=== PATIENT | female | born 1950 | race Caucasian/White ===

== ENCOUNTER 2022-02-19 08:57 | Outpatient (CLI) | payer MEDICARE, BC, SELFPAY ==
--- NOTE | 2022-02-19 09:15 | MR_ITS ---
[facility] [address] [facility] [address] Phone:?[phone] Fax:?[phone] Referring Physician Information: Kevin Arroyo M.D. [address] [facility] [address] Phone:?[phone] Fax:?[phone] Patient:Adele Roth D.O.B:?1950 Sex:?Female Phone:?[phone] [facility] MRN:?[id number] Exam Date:?02/19/2022 ? EXAM: MRI of the RIGHT SHOULDER, without contrast CLINICAL HISTORY: Right shoulder pain. History of fall injury approximately 8 weeks ago. COMPARISONS: None available. TECHNICAL: MRI sequences of the right shoulder: Axials: PD, T2 Coronals: PD, STIR, T2 Sagittals: PD, T2 SEDATION: None CONTRAST: None FINDINGS: Bones: There is nondisplaced fracture of the greater tuberosity at the insertion of the supraspinatus tendon. Coracoacromial arch: Acromion: No os acromiale. Type II acromion. Acromiohumeral space: The bony distance is unremarkable. Coracohumeral space: The bony distance is unremarkable. Acromioclavicular joint: Mild degenerative changes. Coracoclavicular ligament: The coracoclavicular ligament is intact. Rotator cuff muscles/tendons: Supraspinatus: Approximately 1.0 x 1.0 cm region of ill-defined moderate to high-grade partial-thickness intrasubstance tearing within the supraspinatus tendon insertion superimposed upon mild supraspinatus tendinopathy best seen on coronal series 4 images 11 and 12 and sagittal series 8 image 8. No muscular atrophy. Infraspinatus: Mild infraspinatus tendinopathy. No muscular atrophy. Teres minor: The teres minor tendon and muscle are intact. Subscapularis: The subscapularis tendon and muscle are intact. Labrum: Not well evaluated by this nonarthrogram study. Proximal biceps tendon, long head and short heads: The long and short heads of the proximal biceps tendon are intact. Glenohumeral joint: Physiologic amount of joint fluid. Extensive near full-thickness and full-thickness chondral loss over most of the glenoid with associated degenerative subchondral cystic changes best seen on coronal series 4 images 11 through 18. No convincing evidence of capsular edema or thickening although evaluation is suboptimal because of lack of joint distention. Bursae: Subacromial/subdeltoid: Mild bursitis. Subcoracoid: No convincing subcoracoid bursal thickening/bursitis. IMPRESSION: 1. Nondisplaced fracture of the greater tuberosity at the supraspinatus tendon insertion. 2. Approximately 1.0 x 1.0 cm region of ill-defined moderate to high-grade partial-thickness intrasubstance tearing within the supraspinatus tendon insertion superimposed upon mild supraspinatus tendinopathy. 3. Extensive near full-thickness and full-thickness chondral loss over most of the glenoid with associated degenerative subchondral cystic changes. 4. Mild infraspinatus tendinopathy. 5. No rotator cuff muscular atrophy. 6. Mild subacromial/subdeltoid bursitis. 7. Intact biceps tendon. RCB Electronically signed on 02/19/2022 11:28:00 AM by Lenny Munoz M.D.
== END 2022-02-19 08:58 | disposition home or self-care (01) ==
LOC: MRI 08:58
PROVIDERS: PCP Family Medicine; Visit Provider Family Medicine
DX: M25.511 Pain in right shoulder (principal); S42.91XA Fracture of right shoulder girdle, part unspecified, initial encounter for closed fracture; M75.51 Bursitis of right shoulder
CPT/HCPCS: 73221

== ENCOUNTER 2022-03-04 11:03 | Outpatient (RCR) | payer MEDICARE, BC, SELFPAY ==
--- NOTE | 2022-03-04 12:33 | PT.OPEX ---
PT [place] Outpatient Eval PT [facility] Outpatient Eval Start: 03/04/22 07:00 Freq: Status: Active Protocol: Document 03/04/22 12:27 MICHAEL (Rec: 03/04/22 12:32 MICHAEL [id number]) E-signed By Edith Quick, PT Physical Therapy Outpatient Evaluation Insurance Information Recert Due Date 05/27/22 Insurance Name Medicare B Medical Diagnosis Rt shoulder Rotator Cuff Tear with Humeral Greater Tuberosity Fracture from a fall 12/27/2021 Treating Diagnosis Reduced AROM and strength Impaired Rt UE use Pain Referring MD Dr Hilario Figueroa Subjective Subjective Earline reports falling when getting up at night to use the bathroom. That happened at 3: 30 am. I got up to go to work, but my arm was throbbing so bad I had to go to the clinic. Referral from Dr rodriguez to work for 3 weeks (PT at [facility]). I went in to see my regular Dr. Had X-Ray, which showed nothing. Then had an MRI and saw the evulsion fracture and RC tear. She is not a surgical candidate. She is now 9 weeks s/p injury and would like to just learn some ex. Pain remains constant 4-710 depending on what I am doing. I feel pretty good when I get up in the morning, but as the day progresses it gets weaker . I still use ice and take ibuprofen (2 in the morning). Pain with sleeping, also with lifting too much. I do not have any N/T or KO from this. Some neuropathy from s/p mervin breast CA (Rt s/p 15 years, Lt 4 years). 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 PROM: FF 0-161 deg, ABD 0-158, ER 0-85, Strength In neutral 4-/5 FF/ABD/ER. Palpation Very hypertonic at pect major/ minor, biceps, deltoid cap. Myofascial tension full shoulder Posture slight protraction Assessment Assessment/Impression 72 yo with DX of Rt shoulder RC tear with Fractured Rt greater tuberosity of humerus. She did not have a surgical repair, but has had self limitations due to pain and weakness. Work restriction of no arm use overhead and no lifting more than 15#. She has good CX and LT AROM, Rt is impaired: FF 0-140, ABD 0-132, ER 0-45 and IR 0-55. All improved with PROM and post STM/MFR (see above PROM). She is very hypertonic at pect major/minor, biceps, deltoid cap and myofascial tension is great. She has a set of pulleys at home from husbands previous injury. MMT 4-/5 testing in neutral FF/ABD/ER. ADD and EXT 5/5 Primary Functional Limitations Functional reach behind head to occiput with CX ROT to assist. IR reach behind back to SIJ. Plan of Care Rehabilitation Potential Good Physical Therapy Goals In 6 visits, Earline will be able to: 1. AROM is WFL pain free 2. Don/doff overhead shirt without compensatory movements 3. Lift/carry up to 25# 30 feet without difficulties 4. Repetative use of Rt arm waist to overhead X 5 min with light weight (wash mirror, reach into upper cabinet, etc) 5. IND in entire HEP to regain PLOF painfree Coordination/Communication With Referral Source Treatment Plan/Direct Interventions Ice/Cold/Vasopneumatic,Joint Mobilization,Manual Therapy, Self-Care/Home Management, Therapeutic Activities, Therapeutic Exercises Frequency/Duration 1X/Wk for 12 weeks Patient Will Be Discharged From Therapy Completion of LTG(s),Skills Plateau,Independent w/HEP, Independently Progressing Evaluation Billing Untimed Code Treatment Minutes 31 Complexity Moderate Certification Information Initial Certification Date 03/04/22 Ending Certification Date 05/27/22 Provider Signature Shows Agreement With POC & Medical Necessity Physician Comment/Change Comment or Changes Physician NPI Number #
== END 2022-04-29 14:16 | disposition home or self-care (01) ==
PROVIDERS: PCP Family Medicine; Visit Provider Orthopaedic Surgery Sports Medicine
DX: S42.309D Unspecified fracture of shaft of humerus, unspecified arm, subsequent encounter for fracture with routine healing (principal); Z51.89 Encounter for other specified aftercare
CPT/HCPCS: 97110; 97140; 97162

== ENCOUNTER 2022-06-09 13:45 | Outpatient (CLI) | payer MEDICARE, BC, SELFPAY ==
[2022-06-09 22:49] LABS: Chloride* 97 mmol/L (96-114); Potassium* 3.8 mmol/L (3.6-5.1); Sodium* 136 mmol/L (135-149)
[2022-06-09 22:51] LABS: Cholesterol* 237 mg/dL (90-199)
[2022-06-09 22:52] LABS: Alanine Aminotransferase* 23 U/L (4-35); Blood Urea Nitrogen* 15 mg/dL (7-30); Calcium* 9.5 mg/dL (8.4-10.6); Carbon Dioxide* 34 mmol/L (20-32); Creatinine* 0.7 mg/dL (0.5-1.5); Estimated Glomerular Filt Rate 92 ml/min; Glucose* 88 mg/dL (60-115); Triglycerides* 54 mg/dL (40-149)
[2022-06-09 22:53] LABS: HDL Cholesterol* 102 mg/dL (>=50); LDL Cholesterol Calculated 124 mg/dL (<100)
== END 2022-06-09 13:46 | disposition home or self-care (01) ==
PROVIDERS: PCP Family Medicine; Visit Provider Family Medicine
DX: I10 Essential (primary) hypertension (principal); E78.5 Hyperlipidemia, unspecified
CPT/HCPCS: 80048; 80061; 84460

== ENCOUNTER 2023-03-04 09:54 | Outpatient (CLI) | payer BC, SELFPAY | END 2023-03-04 09:55 | disposition home or self-care (01) | PROVIDERS: PCP Family Medicine; Visit Provider Family Medicine | DX: R42 Dizziness and giddiness (principal); E78.5 Hyperlipidemia, unspecified; I10 Essential (primary) hypertension | CPT/HCPCS: 80048; 80061; 84460; 85025 ==

== ENCOUNTER 2023-06-02 08:45 | Emergency (ER) | payer MEDICARE, SELFPAY ==
[2023-06-02] VITALS (38 sets, daily range): BP systolic 76–141; BP diastolic 47–107; PULSE 71–118; RESP 20; TEMP 36.3–36.5; O2SAT 94–100; BMI 28.0
--- NOTE | 2023-06-02 09:33 | ED.GENADULT ---
HPI - General Adult General Time Seen by Provider: 09:16 Date Seen: 06/02/23 Chief complaint: Dizziness/Vertigo Stated complaint: dizzy,shortness of breath Time Seen by Provider: 06/02/23 08:51 Source: patient Mode of arrival: ambulatory Limitations: no limitations History of Present Illness HPI narrative: Patient presents with sudden lightheadedness beginning this morning around 8:00 a.m. while she was working at [employer]. She states at that time she began to feel ?off? and felt palpitations. The patient attempted to drink some water and ate some cookies and also took 2 ibuprofen and 1 Tylenol at the onset of her symptoms with little to no relief. Patient states she can feel her heart beating in her chest and she is feeling warm. On her ride over to the ED patient states she began to feel short of breath. As of yesterday, patient was feeling fine. She denies any headaches, weakness, leg swelling, abdominal pain, urinary changes, bowel changes, vision changes, cough, or any other complaints at this time. She is a former smoker. Patient's last alcoholic drink was approximately 3 days ago. Patient takes a baby aspirin every other day. She has taken her blood pressure medications this morning. Related Data Home Medications Medication Instructions Recorded Confirmed anastrozole 1 mg tablet 1 mg PO QDAY 12/26/21 06/02/23 aspirin 81 mg tablet,delayed 81 mg PO QDAY 12/26/21 03/04/23 release Previous Rx's Medication Instructions Recorded lisinopril 10 1 tab PO QDAY #90 tabs 03/04/23 mg-hydrochlorothiazide 12.5 mg tablet meclizine 25 mg tablet 25 mg PO TID PRN dizziness #30 tabs 03/04/23 ondansetron 8 mg disintegrating 8 mg PO TID PRN nausea and 03/04/23 tablet vomiting #20 tabs rosuvastatin 10 mg tablet (Crestor) 10 mg PO QDAY #90 tabs 03/04/23 Allergies Allergy/AdvReac Type Severity Reaction Status Date / Time No Known Drug Allergies Allergy Verified 06/02/23 10:40 Review of Systems Status of ROS: Reports: 10 or more systems reviewed and unremarkable except as noted in History and below Const: Denies: fever, chills, change in weight, fatigue, malaise or night sweats Eyes: Denies: change in vision, blurry vision, blind spots or light sensitivity ENMT: Denies: throat pain, neck pain, throat swelling, difficulty swallowing, mouth pain, dry mouth, ear pain or vertigo Cardio: Reports: palpitations, lightheadedness, shortness of breath with exertion and shortness of breath when lying down; Denies: chest pain, edema, swelling of feet/ankles or leg pain with exertion Resp: Reports: shortness of breath GI: Denies: abdominal pain, nausea, vomiting, heartburn, diarrhea, constipation, bloating or difficulty swallowing : Denies: painful urination, urinary frequency, urinary urgency, urinary incontinence, blood in urine, difficulty voiding or decreased urine ouput Musculo: Denies: back pain, neck pain, extremity pain, extremity swelling, joint pain, limited range of motion, joint swelling, muscle cramps or muscle weakness Integ/Breast: Denies: rash Neuro: Denies: headache, numbness in extremities, weakness in extremities, lack of coordination, dizziness, vertigo, confusion, behavioral changes, slurred speech, difficulty communicating thoughts or involuntary movements Psych: Reports: anxiety Endo: Reports: flushing; Denies: excessive urination, excessive thirst or fatigue Vladimir/Lymph: Denies: enlarged lymph nodes Allergy/Immuno: Denies: throat swelling PFSH [facility] Medical History (Updated 06/02/23 @ 11:23 by Don Nathan MD) Osteoarthritis of right shoulder ?M19.011 - Primary osteoarthritis, right shoulder (ICD-10) Fracture of greater tuberosity of right humerus ?S42.251A - Displaced fracture of greater tuberosity of right humerus, initial encounter for closed fracture (ICD-10) Rotator cuff tear, right (12/2021) ?M75.101 - Unspecified rotator cuff tear or rupture of right shoulder, not specified as traumatic (ICD-10) Onychomycosis ?B35.1 - Tinea unguium (ICD-10) Malignant neoplasm of right breast (2002) ?C50.911 - Malignant neoplasm of unspecified site of right female breast (ICD-10) Infiltrating ductal carcinoma of left breast (09/09/17) ?C50.912 - Malignant neoplasm of unspecified site of left female breast (ICD-10) Hypertension ?I10 - Essential (primary) hypertension (ICD-10) Hyperlipidemia ?E78.5 - Hyperlipidemia, unspecified (ICD-10) History of traumatic brain injury (2016) ?Z87.820 - Personal history of traumatic brain injury (ICD-10) History of colonic polyps (08/18/18) ?Z86.010 - Personal history of colonic polyps (ICD-10) Chemotherapy-induced neuropathy ?G62.0 - Drug-induced polyneuropathy (ICD-10) ?T45.1X5A - Adverse effect of antineoplastic and immunosuppressive drugs, initial encounter (ICD-10) Insomnia ?G47.00 - Insomnia, unspecified (ICD-10) Surgical History (Updated 01/31/22 @ 12:19 by Alex Barahona) Status post excision of Boateng's neuroma (2004) ?Z98.890 - Other specified postprocedural states (ICD-10) ?Z86.69 - Personal history of other diseases of the nervous system and sense organs (ICD-10) History of tubal ligation ?Z98.51 - Tubal ligation status (ICD-10) History of colonoscopy (08/18/18) ?Z98.890 - Other specified postprocedural states (ICD-10) History of breast reconstruction ?Z98.890 - Other specified postprocedural states (ICD-10) History of bilateral mastectomy (2002) ?Z90.13 - Acquired absence of bilateral breasts and nipples (ICD-10) Family History Mother Stroke, Onset Age: 78 Social History (Reviewed 02/28/22 @ 10:03 by Tracey Medina ~ [facility], [facility]) Narrative: -Daniel, [place], non-smoker, social EtOH Smoking Status: Former smoker Exam Narrative: Exam Narrative: General: Well-nourished, healthy-appearing, but diaphoretic and mildly anxious on exam. HENMT: Normal cephalic, atraumatic. Hearing grossly intact bilaterally. Moist mucous membranes. Oropharynx normal. Neck: Full ROM. Supple, no lymphadenopathy. Eye: PERRL. EOMs intact bilaterally. Conjunctiva normal. Chest/Cardio: Inspection normal. No tenderness to palpation of chest wall. Tachycardic with an irregularly irregular rhythm. No clicks, rubs, gallops, or murmurs. 2+ peripheral pulses bilaterally. No JVD. Resp: Inspection normal. No increased effort, no use of accessory muscles. Lungs clear to auscultation bilaterally with no wheezing, rhonchi, crackles. Percussion normal. GI: Inspection normal. Normoactive bowel sounds. Soft, nondistended, nontender with no rebound tenderness or guarding. No hepatosplenomegaly. No CVA tenderness. Extremities: Normal inspection. Full ROM. No pedal edema. No calf tenderness. Capillary refill normal. Neuro: Alert and oriented x3. No focal motor or sensory deficits noted. Cranial nerves II- XII intact. Psych: Cooperative. Speech normal. Thought process appropriate. Skin: No rashes or lesions. Warm and diaphoretic. Const: Vital Signs, click to edit/add: Vital Signs - 24 hr 06/02/23 08:56 06/02/23 09:18 06/02/23 09:31 Temperature 97.7 F Pulse Rate 118 H 92 Pulse Rate [Bilate ral] 104 H Respiratory Rate 20 Blood Pressure 108/97 H Blood Pressure [Le ft Upper Arm] 141/94 H Pulse Oximetry 98 100 [facility] 06/02/23 09:32 06/02/23 09:37 06/02/23 09:38 Temperature Pulse Rate 118 H 90 106 H Pulse Rate [Bilate ral] Respiratory Rate Blood Pressure 119/82 119/107 H Blood Pressure [Le ft Upper Arm] Pulse Oximetry 100 97 [facility] 06/02/23 09:40 06/02/23 09:41 06/02/23 09:43 Temperature Pulse Rate 109 H 92 91 Pulse Rate [Bilate ral] Respiratory Rate Blood Pressure 90/48 L 90/53 L 76/47 L Blood Pressure [Le ft Upper Arm] Pulse Oximetry 97 95 98 Oxygen Delivery Me thod 06/02/23 09:44 06/02/23 09:45 06/02/23 09:46 Temperature Pulse Rate 101 H 95 80 Pulse Rate [Bilate ral] Respiratory Rate Blood Pressure 93/67 92/66 Blood Pressure [Le ft Upper Arm] Pulse Oximetry 98 96 94 Oxygen Delivery Me thod 06/02/23 09:47 06/02/23 09:48 06/02/23 09:50 Temperature Pulse Rate 80 84 95 Pulse Rate [Bilate ral] Respiratory Rate Blood Pressure 88/70 L 91/47 L 79/63 L Blood Pressure [Le ft Upper Arm] Pulse Oximetry 98 98 96 Oxygen Delivery Me thod 06/02/23 09:52 06/02/23 09:53 06/02/23 09:56 Temperature Pulse Rate 85 82 88 Pulse Rate [Bilate ral] Respiratory Rate Blood Pressure 92/76 99/52 L Blood Pressure [Le ft Upper Arm] Pulse Oximetry 97 97 98 Oxygen Delivery Me od 06/02/23 10:00 06/02/23 10:01 06/02/23 10:06 Temperature Pulse Rate 80 84 79 Pulse Rate [Bilate ral] Respiratory Rate Blood Pressure 96/63 92/64 Blood Pressure [Le ft Upper Arm] Pulse Oximetry 99 99 98 Oxygen Delivery Me od 06/02/23 10:11 06/02/23 10:12 06/02/23 10:15 Temperature Pulse Rate 79 75 74 Pulse Rate [Bilate ral] Respiratory Rate Blood Pressure 110/79 Blood Pressure [Le ft Upper Arm] Pulse Oximetry 96 97 99 Oxygen Delivery Me od 06/02/23 10:16 06/02/23 10:22 06/02/23 10:30 Temperature Pulse Rate 75 77 77 Pulse Rate [Bilate ral] Respiratory Rate Blood Pressure 96/61 96/59 L Blood Pressure [Le ft Upper Arm] Pulse Oximetry 98 99 99 Oxygen Delivery Me od 06/02/23 10:31 06/02/23 10:31 06/02/23 10:32 Temperature 97.4 F L Pulse Rate 78 76 Pulse Rate [Bilate ral] Respiratory Rate Blood Pressure 103/55 L Blood Pressure [Le ft Upper Arm] Pulse Oximetry 98 96 Oxygen Delivery Me od 06/02/23 10:45 06/02/23 10:46 06/02/23 10:52 Temperature Pulse Rate 73 75 75 Pulse Rate [Bilate ral] Respiratory Rate Blood Pressure 89/62 L 103/62 Blood Pressure [Le ft Upper Arm] Pulse Oximetry 98 99 99 Oxygen Delivery Me od 06/02/23 10:53 06/02/23 11:00 06/02/23 11:02 Temperature Pulse Rate 76 71 75 Pulse Rate [Bilate ral] Respiratory Rate Blood Pressure 102/52 L Blood Pressure [Le ft Upper Arm] Pulse Oximetry 99 98 99 Oxygen Delivery Me od 06/02/23 11:03 06/02/23 11:15 06/02/23 11:17 Temperature Pulse Rate 74 77 77 Pulse Rate [Bilate ral] Respiratory Rate Blood Pressure 109/72 Blood Pressure [Le ft Upper Arm] Pulse Oximetry 99 97 98 Oxygen Delivery Me thod Eye: Direct Ophthalmoscopy: no photophobia Course Vital Signs Vital signs: Initial Vital Signs Temperature 97.7 F 06/02/23 08:56 Temperature Source Oral 06/02/23 08:56 Pulse Rate 104 H 06/02/23 08:56 Pulse Rhythm Regular 06/02/23 08:56 Pulse Strength 3+ Normal 06/02/23 08:56 Respiratory Rate 20 06/02/23 08:56 Blood Pressure 141/94 H 06/02/23 08:56 Blood Pressure Mean 109 H 06/02/23 08:56 Pulse Oximetry 98 06/02/23 08:56 Oxygen Delivery Method Room Air 06/02/23 08:56 Vital Signs Temperature 97.7 F 06/02/23 08:56 Pulse Rate 104 H 06/02/23 08:56 Respiratory Rate 20 06/02/23 08:56 Blood Pressure 141/94 H 06/02/23 08:56 Pulse Oximetry 98 06/02/23 08:56 Oxygen Delivery Method Room Air 06/02/23 08:56 Temperature 97.4 F L 06/02/23 10:31 Pulse Rate 77 06/02/23 11:17 Respiratory Rate 20 06/02/23 08:56 Blood Pressure 109/72 06/02/23 11:17 Pulse Oximetry 98 06/02/23 11:17 Oxygen Delivery Method Room Air 06/02/23 08:56 Medications Administered Medications: Discontinued Medications Generic Name Dose Route Start Last Admin Trade Name Balq PRN Reason Stop Dose Admin Apixaban 10 mg 06/02/23 09:57 06/02/23 10:22 Apixaban 5 Mg Tablet PO 06/02/23 09:58 10 mg ONCE ONE Administration Diltiazem HCl 20 mg 06/02/23 09:17 06/02/23 10:01 Diltiazem 5 Mg/Ml Inj IVP 06/02/23 09:18 10 mg ONCE ONE Administration Sodium Chloride 1,000 mls @ 1,000 mls/hr 06/02/23 10:00 06/02/23 10:53 0.9 % Sodium Chloride 1000 Ml IV 06/02/23 10:59 Infused .Q1H AMIE Infusion Medical Decision Making MDM Narrative Medical decision making narrative: Patient is a pleasant 73-year-old female with a past pertinent medical history of hypertension who presents today with sudden lightheadedness, shortness of breath, and palpitations beginning around 0800 a.m. this morning while working at [employer]. Prior to today, patient has been feeling fine. Patient denies any current chest pain. She tried drinking water, eating some cookies, and taking two ibuprofen and one Tylenol tablet with little to no relief this morning. She did take her blood pressure medication this morning. Patient does take a baby aspirin every other day. She denies any headaches, vision changes, or fatigue/weakness. On exam, patient is alert, diaphoretic, and talkative. She is hypertensive with a BP of 141/94 and tachycardic at approximately 140 bpm with an irregularly irregular rhythm. 2+ peripheral pulses. Lungs were clear to auscultation. No neural deficits. Otherwise unremarkable physical exam. Workup will include EKG, troponin CBC, BMP, TSH, COVID/flu. Initial EKG showed atrial fibrillation with rapid ventricular response at 142 bpm. Point of care troponin is negative at 0.01. IV was placed and patient was given 1 L normal saline fluids and 10 mg IV diltiazem which lowered her rate to 85 bpm. Repeat EKG obtained which showed normal sinus rhythm with 1st degree AV block is and her rate has now lowered 85 beats per minute. Started patient on 10 mg Eliquis due to the possibility of cardioversion and subsequent blood clot risk. Patient is maintaining normal sinus rhythm, so cardioversion is not appropriate or necessary at this time. CBC is reassuring and within normal limits. Metabolic panel is unremarkable, besides a nonfasting glucose of 119; however, this is not worrisome. TSH is WNL. Viral panel is negative. On reexamination, patient is feeling much better and her diaphoresis, shortness of breath, and palpitations have resolved. She is maintaining normal sinus rhythm and her rate is well controlled at approximately 80 bpm. We discussed how her blood pressure is lower at 102/52 and she may feel lightheaded when she tries to stand. Will do an ambulatory test before discharge. All other vital signs are stable. We discussed follow-up with her primary care provider to assess appropriate blood pressure medications and even consider rate controlling BP meds. Advised patient start taking her 81 mg baby aspirin daily instead of every other day. Return precautions advised. Patient and family understand and are in agreement with the plan. Lab Data Labs: Lab Results 06/02/23 Range/Units 09:25 WBC 5.01 (4.50-11.00) K/uL RBC 4.50 (4.00-5.20) m/uL Hgb 13.1 (12.0-16.0) gm/dL Hct 40.2 (33.0-51.0) % MCV 89 (80-100) fL MCH 29 (26-34) pg MCHC 33 (32-36) gm/dL RDW Coeff of Obdulia 13.2 (11.5-15.5) % Plt Count 259 (140-440) K/uL Neut % (Auto) 68.0 (42.0-72.0) % Lymph % (Auto) 24.6 (20-44) % [place] % (Auto) 5.6 (0.0-11.0) % Eos % (Auto) 1.0 (0.0-7.0) % Baso % (Auto) 0.8 (0.0-3.0) % Neut # (Auto) 3.41 (1.7-7.0) K/uL Lymph # (Auto) 1.23 (0.90-2.90) K/uL [place] # (Auto) 0.30 (0.00-0.90) K/UL Eos # (Auto) 0.05 (0.00-0.50) K/uL Baso # (Auto) 0.04 (0.00-0.30) K/uL Abs Immat Gran (auto) 0.00 (0.00-0.30) K/uL Imm/Tot Granulo (auto) 0.0 % Sodium 135 (135-149) mmol/L Potassium 3.8 (3.6-5.1) mmol/L Chloride 100 (96-114) mmol/L Carbon Dioxide 26 (20-32) mmol/L Anion Gap 9 (7-15) mEq/L BUN 22 (7-30) mg/dL Creatinine 0.9 (0.5-1.5) mg/dL Estimated Creat Clear 54.18 Estimated GFR 68 ml/min Glucose 119 H (60-115) mg/dL Calcium 9.4 (8.4-10.6) mg/dL TSH 1.430 (0.270-4.20) uIU/mL SARS-CoV-2 (PCR) Negative SARS-CoV-2 (Negative) Influenza Type A (PCR) Negative PCR FLU A (Negative) Influenza Type B (PCR) Negative PCR FLU B (Negative) RSV (PCR) Negative PCR RSV (Negative) POC Troponin I 0.01 (0.01-0.04) ng/ml ECG Data Attestation: I personally reviewed and interpreted this ECG as follows: Interpretation: 09:15 AM Atrial fibrillation with rapid ventricular response 142 bpm No discernable P waves 10:10 AM Sinus rhythm with 1st degree AV block 85 bpm Discharge Plan Discharge Clinical Impression: Atrial fibrillation with rapid ventricular response Patient Disposition: Home w/ Parent or Adult Condition: Improved Additional Instructions: Take aspirin 81 mg daily. Return if symptoms are recurrent. Follow-up with primary physician to review medications. Prescriptions: No Action meclizine 25 mg tablet 25 mg PO TID PRN (Reason: dizziness) Qty: 30 0RF ondansetron 8 mg tablet,disintegrating 8 mg PO TID PRN (Reason: nausea and vomiting) Qty: 20 0RF lisinopril-hydrochlorothiazide 10-12.5 mg tablet 1 tab PO QDAY Qty: 90 3RF rosuvastatin [Crestor] 10 mg tablet 10 mg PO QDAY Qty: 90 3RF aspirin 81 mg tablet,delayed release (DR/EC) 81 mg PO QDAY anastrozole 1 mg tablet 1 mg PO QDAY Follow Up/Referrals: Kevin Arroyo MD [Primary Care Provider] - Stand Alone Forms: [employer] Info Instructions
[2023-06-02 09:34] LABS: Troponin, Point-of-Care* 0.01 ng/ml (0.01-0.04)
[2023-06-02 09:37] LABS: Basophils Absolute Auto 0.04 K/uL (0.00-0.30); Basophils Percent Auto 0.8 % (0.0-3.0); Eosinophils Absolute Auto 0.05 K/uL (0.00-0.50); Hematocrit 40.2 % (33.0-51.0); Hemoglobin* 13.1 gm/dL (12.0-16.0); Lymphocytes Absolute Auto 1.23 K/uL (0.90-2.90); Lymphocytes Percent Auto 24.6 % (20-44); Mean Corpuscular HGB Conc 33 gm/dL (32-36); Mean Corpuscular Hemoglobin 29 pg (26-34); Mean Corpuscular Volume 89 fL (80-100); Monocytes Percent Auto 5.6 % (0.0-11.0); Neutrophils Absolute Auto 3.41 K/uL (1.7-7.0); Platelet Count* 259 K/uL (140-440); RDW Coefficient of Variation % 13.2 % (11.5-15.5); White Blood Count* 5.01 K/uL (4.50-11.00)
[2023-06-02 09:48] LABS: Slide Review Reflex No
[2023-06-02 09:59] LABS: Chloride* 100 mmol/L (96-114); Potassium* 3.8 mmol/L (3.6-5.1); Sodium* 135 mmol/L (135-149)
[2023-06-02] MEDS: dilTIAZem 5 MG/ML inj 20 MG IVP (10:01)
[2023-06-02 10:02] LABS: Anion Gap 9 mEq/L (7-15); Blood Urea Nitrogen* 22 mg/dL (7-30); Carbon Dioxide* 26 mmol/L (20-32); Creatinine* 0.9 mg/dL (0.5-1.5); Est. Creatinine Clearance* 54.18; Estimated Glomerular Filt Rate 68 ml/min
[2023-06-02 10:03] LABS: Calcium* 9.4 mg/dL (8.4-10.6); Glucose* 119 mg/dL (60-115)
[2023-06-02] MEDS: 0.9 % SODIUM CHLORIDE 1000 ml 1,000 ML IV (10:03)
[2023-06-02 10:14] LABS: PCR FLU A Negative PCR FLU A (Negative); PCR FLU B Negative PCR FLU B (Negative); PCR RSV Negative PCR RSV (Negative)
[2023-06-02] MEDS: APIXABAN 5 MG TABLET 10 MG PO (10:22)
[2023-06-02 11:14] LABS: SARS PCR* Negative SARS-CoV-2 (Negative)
== END 2023-06-02 11:39 | disposition home or self-care (01) ==
PROVIDERS: Emergency Provider Emergency Medicine Emergency Medical Services; PCP Family Medicine
DX: I48.91 Unspecified atrial fibrillation (principal)
CPT/HCPCS: 36415; 80048; 84443; 84484; 85025; 87631; 93005; 96361; 96374; 99284; A9270; J7030

== ENCOUNTER 2023-08-18 12:26 | Emergency (ER) | payer MEDICARE, SELFPAY ==
[2023-08-18] VITALS (21 sets, daily range): BP systolic 119–148; BP diastolic 71–94; PULSE 58–76; RESP 20; TEMP 36; O2SAT 97–100; BMI 27.2
[2023-08-18 13:49] LABS: Basophils Absolute Auto 0.03 K/uL (0.00-0.30); Basophils Percent Auto 0.6 % (0.0-3.0); Eosinophils Absolute Auto 0.06 K/uL (0.00-0.50); Eosinophils Percent Auto 1.2 % (0.0-7.0); Hemoglobin* 13.3 gm/dL (12.0-16.0); Immature Granulocytes Abs Auto 0.01 K/uL (0.00-0.30); Immature Granulocytes Pct Auto 0.2 %; Lymphocytes Absolute Auto 1.33 K/uL (0.90-2.90); Lymphocytes Percent Auto 25.9 % (20-44); Mean Corpuscular HGB Conc 33 gm/dL (32-36); Mean Corpuscular Hemoglobin 29 pg (26-34); Mean Corpuscular Volume 88 fL (80-100); Monocytes Percent Auto 7.6 % (0.0-11.0); Neutrophils Absolute Auto 3.31 K/uL (1.7-7.0); Neutrophils Percent Auto 64.5 % (42.0-72.0); Platelet Count* 246 K/uL (140-440); Red Blood Count 4.57 m/uL (4.00-5.20); White Blood Count* 5.13 K/uL (4.50-11.00)
[2023-08-18 13:56] LABS: Slide Review Reflex No
--- NOTE | 2023-08-18 13:58 | ED.GENADULT ---
HPI - General Adult General Chief complaint: Dizziness/Vertigo Stated complaint: Fingers numb, feeling faint Time Seen by Provider: 08/18/23 12:51 Source: patient Mode of arrival: wheelchair Limitations: no limitations History of Present Illness HPI narrative: Patient is a 73-year-old female presenting to the emergency department for lightheadedness. She states she was at work today when she got up so she felt like she was about to pass out. That resolved but then later on the day symptoms came back. She went home and so discharge home total she needs to go to emergency department because she was feeling like she will pass out. Says feels like her vision will go dark a little bit occasionally but she is not fully syncopized yet. She states there is no dizziness and she has had vertigo in the past and this feels nothing like that. She states even lying in bed she feels like she is going to pass out. Has some mild shortness of breath but denies chest pain, headache, weakness, numbness, abdominal pain, diarrhea, constipation, dysuria. A few months ago she did wear a Zio patch for AFib. Denies ever having symptoms like this before. Related Data Home Medications Medication Instructions Recorded Confirmed anastrozole 1 mg tablet 1 mg PO QDAY 12/26/21 08/18/23 aspirin 81 mg tablet,delayed 81 mg PO QDAY 12/26/21 08/18/23 release Previous Rx's Medication Instructions Recorded lisinopril 10 1 tab PO QDAY #90 tabs 03/04/23 mg-hydrochlorothiazide 12.5 mg tablet rosuvastatin 10 mg tablet (Crestor) 10 mg PO QDAY #90 tabs 03/04/23 diltiazem HCl 120 mg 120 mg PO DAILY #60 caps 08/18/23 capsule,extended release 24 hr (Cardizem CD) Allergies Allergy/AdvReac Type Severity Reaction Status Date / Time No Known Drug Allergies Allergy Verified 08/18/23 12:34 Review of Systems Status of ROS: Reports: 10 or more systems reviewed and unremarkable except as noted in History and below [facility] Medical History Mixed hyperlipidemia ?E78.2 - Mixed hyperlipidemia (ICD-10) Primary hypertension ?I10 - Essential (primary) hypertension (ICD-10) Osteoarthritis of right shoulder ?M19.011 - Primary osteoarthritis, right shoulder (ICD-10) Fracture of greater tuberosity of right humerus ?S42.251A - Displaced fracture of greater tuberosity of right humerus, initial encounter for closed fracture (ICD-10) Rotator cuff tear, right (12/2021) ?M75.101 - Unspecified rotator cuff tear or rupture of right shoulder, not specified as traumatic (ICD-10) Onychomycosis ?B35.1 - Tinea unguium (ICD-10) Malignant neoplasm of right breast (2002) ?C50.911 - Malignant neoplasm of unspecified site of right female breast (ICD-10) Infiltrating ductal carcinoma of left breast (09/09/17) ?C50.912 - Malignant neoplasm of unspecified site of left female breast (ICD-10) History of traumatic brain injury (2015) ?Z87.820 - Personal history of traumatic brain injury (ICD-10) History of colonic polyps (08/18/18) ?Z86.010 - Personal history of colonic polyps (ICD-10) Chemotherapy-induced neuropathy ?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 - Drug-induced polyneuropathy (ICD-10) ?T45.1X5A - Adverse effect of antineoplastic and immunosuppressive drugs, initial encounter (ICD-10) Insomnia ?G47.00 - Insomnia, unspecified (ICD-10) Surgical History Status post excision of Boateng's neuroma (2004) ?Z98.890 - Other specified postprocedural states (ICD-10) ?Z86.69 - Personal history of other diseases of the nervous system and sense organs (ICD-10) History of tubal ligation ?Z98.51 - Tubal ligation status (ICD-10) History of colonoscopy (08/18/18) ?Z98.890 - Other specified postprocedural states (ICD-10) History of breast reconstruction ?Z98.890 - Other specified postprocedural states (ICD-10) History of bilateral mastectomy (2002) ?Z90.13 - Acquired absence of bilateral breasts and nipples (ICD-10) Family History Mother Stroke, Onset Age: 78 Social History (Reviewed 08/18/23 @ 14:01 by GABRIELLA Browne Narrative: -Daniel, [place], non-smoker, social EtOH Smoking Status: Former smoker Do you use any of these nicotine containing products: None Second hand tobacco smoke exposure: No How often do you have a drink containing alcohol: monthly or less AUDIT-C Alcohol total score: 1 Non-prescribed substance use: denies use Little interest or pleasure in doing things: not at all Feeling down, depressed, or hopeless: not at all service: No Exam Narrative: Exam Narrative: Const: Well-nourished, Well-developed, in mild distress Eyes: PERRL, no conjunctival injection, and symmetrical lids HENT: Atraumatic external nose and ears. Moist mucous membranes. Neck: Symmetric, trachea midline, No thyromegaly. CVS: RRR, No murmurs or gallops. Peripheral pulses 2+ and equal in all extremities RESP: Unlabored respiratory effort. Clear to auscultation bilaterally. GI: Nontender/Nondistended, No rebound or guarding. MSK:Extremities w/o deformity, Normal Active ROM Skin: Warm, Dry. No rashes or lesions. Neuro: Normal Muscle tone, No focal neurological deficits. Psych: Awake, Alert, & Oriented x3. Appropriate mood and affect. Const: Vital Signs, click to edit/add: Vital Signs - 24 hr 08/18/23 12:31 08/18/23 13:57 08/18/23 14:00 Temperature 96.8 F L Pulse Rate 66 64 Pulse Rate [Right Pulse Oximeter] 76 Respiratory Rate 20 Blood Pressure Blood Pressure [Ri ght Upper Arm] 147/75 H Pulse Oximetry 99 100 98 Oxygen Delivery Me thod Room Air 08/18/23 14:15 08/18/23 14:28 08/18/23 14:30 Temperature Pulse Rate 70 68 Pulse Rate [Right Pulse Oximeter] Respiratory Rate Blood Pressure Blood Pressure [Ri ght Upper Arm] 123/76 Pulse Oximetry 98 98 Oxygen Delivery Me thod 08/18/23 14:45 08/18/23 14:56 08/18/23 15:00 Temperature Pulse Rate 67 66 66 Pulse Rate [Right Pulse Oximeter] Respiratory Rate Blood Pressure 119/91 H Blood Pressure [Ri ght Upper Arm] Pulse Oximetry 97 99 100 Oxygen Delivery Me thod 08/18/23 15:03 08/18/23 15:15 08/18/23 15:30 Temperature Pulse Rate 64 61 59 L Pulse Rate [Right Pulse Oximeter] Respiratory Rate Blood Pressure 148/92 H Blood Pressure [Ri ght Upper Arm] Pulse Oximetry 100 99 99 Oxygen Delivery Me thod 08/18/23 15:32 08/18/23 15:45 08/18/23 16:00 Temperature Pulse Rate 58 L 61 61 Pulse Rate [Right Pulse Oximeter] Respiratory Rate Blood Pressure 140/87 H Blood Pressure [Ri ght Upper Arm] Pulse Oximetry 98 98 97 Oxygen Delivery Me thod 08/18/23 16:02 08/18/23 16:02 08/18/23 16:02 Temperature Pulse Rate 60 60 60 Pulse Rate [Right Pulse Oximeter] Respiratory Rate Blood Pressure 130/71 130/71 130/71 Blood Pressure [Ri ght Upper Arm] Pulse Oximetry 100 100 100 Oxygen Delivery Me thod Course Vital Signs Vital signs: Initial Vital Signs Temperature 96.8 F L 08/18/23 12:31 Temperature Source Temporal Artery Scan 08/18/23 12:31 Pulse Rate 76 08/18/23 12:31 Pulse Rhythm Regular 08/18/23 12:31 Pulse Strength 3+ Normal 08/18/23 12:31 Respiratory Rate 20 08/18/23 12:31 Blood Pressure 147/75 H 08/18/23 12:31 Blood Pressure Mean 99 08/18/23 12:31 Blood Pressure Position Sitting 08/18/23 12:31 Pulse Oximetry 99 08/18/23 12:31 Oxygen Delivery Method Room Air 08/18/23 12:31 Vital Signs Temperature 96.8 F L 08/18/23 12:31 Pulse Rate 76 08/18/23 12:31 Respiratory Rate 20 08/18/23 12:31 Blood Pressure 147/75 H 08/18/23 12:31 Pulse Oximetry 99 08/18/23 12:31 Oxygen Delivery Method Room Air 08/18/23 12:31 Temperature 96.8 F L 08/18/23 12:31 Pulse Rate 60 08/18/23 16:02 Respiratory Rate 20 08/18/23 12:31 Blood Pressure 130/71 08/18/23 16:02 Pulse Oximetry 100 08/18/23 16:02 Oxygen Delivery Method Room Air 08/18/23 12:31 Medications Administered Medications: Discontinued Medications Generic Name Dose Route Start Last Admin Trade Name Jazzy PRN Reason Stop Dose Admin Lactated Ringer's 1,000 mls @ 1,000 mls/hr 08/18/23 14:41 08/18/23 16:06 Lactated Ringers 1000 Ml IV 08/18/23 15:40 Infused .Q1H ONE Infusion Ondansetron HCl 4 mg 08/18/23 14:41 08/18/23 14:55 Ondansetron 2 Mg/Ml Inj IVP 08/18/23 14:42 4 mg ONCE ONE Administration Medical Decision Making MDM Narrative Medical decision making narrative: Patient is a 73-year-old female presenting to the emergency department for lightheadedness. She is also having some nausea. She states she has been drinking plenty of fluid so does not think she is dehydrated. Spot that was told try given your L of fluids and Zofran for nausea. Also ordered an EKG, CMP, troponin, CBC, COVID/flu/RSV. She distinctly states this is not dizziness. I do not believe head imaging is necessary at this time. EKG shows no concerning abnormalities. There are some PVCs. For while patient was in the emergency department we noticed several episodes of runs of widened QRS tachycardia. I was able to see her Zio Patch records from last month and she had similar episodes then. This time they seem much more frequent though. Based on the note it appears they diagnosed did ask SVT Patient was given a L fluid and afterwards was feeling asymptomatic. She was able to walk around without issue and states she feels good enough to go home at this time. These episodes seem to have been occurring every 10-20 minutes for on all ordered have been stopped after she received the fluids. While I was speaking to her she had a couple more episodes but was asymptomatic at this time. Her lab work returned showing no concerning findings. I spoke to Dr. Restrepo of [facility]. I explained to him that she appears to be having similar episodes of SVT as described in the note for the Zio patch. Also explained to him that symptoms resolved or her and she had couple more episodes while I was speaking to her and was asymptomatic at that time. He recommends starting her on Cardizem CD 120 mg daily into cut her lisinopril-hydrochlorothiazide in half. He thinks is reasonable for her to wait till September to see cardiology at that is what she prefers. Patient will be discharged home Lab Data Labs: Lab Results 08/18/23 08/18/23 Range/Units 13:30 13:36 WBC 5.13 (4.50-11.00) K/uL RBC 4.57 (4.00-5.20) m/uL Hgb 13.3 (12.0-16.0) gm/dL Hct 40.0 (33.0-51.0) % MCV 88 (80-100) fL MCH 29 (26-34) pg MCHC 33 (32-36) gm/dL RDW Coeff of Obdulia 13.0 (11.5-15.5) % Plt Count 246 (140-440) K/uL Neut % (Auto) 64.5 (42.0-72.0) % Lymph % (Auto) 25.9 (20-44) % Granite % (Auto) 7.6 (0.0-11.0) % Eos % (Auto) 1.2 (0.0-7.0) % Baso % (Auto) 0.6 (0.0-3.0) % Neut # (Auto) 3.31 (1.7-7.0) K/uL Lymph # (Auto) 1.33 (0.90-2.90) K/uL Granite # (Auto) 0.40 (0.00-0.90) K/UL Eos # (Auto) 0.06 (0.00-0.50) K/uL Baso # (Auto) 0.03 (0.00-0.30) K/uL Abs Immat Gran (auto) 0.01 (0.00-0.30) K/uL Imm/Tot Granulo (auto) 0.2 % Sodium 135 (135-149) mmol/L Potassium 3.4 L (3.6-5.1) mmol/L Chloride 96 (96-114) mmol/L Carbon Dioxide 28 (20-32) mmol/L Anion Gap 11 (7-15) mEq/L BUN 14 (7-30) mg/dL Creatinine 0.6 (0.5-1.5) mg/dL Estimated Creat Clear 56.00 Estimated GFR 95 ml/min Glucose 89 (60-115) mg/dL Calcium 10.2 (8.4-10.6) mg/dL Total Bilirubin 0.8 (0.1-1.5) mg/dL AST 26 (12-35) U/L ALT 23 (4-35) U/L Alkaline Phosphatase 66 (40-150) U/L Total Protein 8.0 (6.0-8.3) g/dL Albumin 4.8 (3.3-5.0) g/dL SARS-CoV-2 (PCR) Negative SARS-CoV-2 (Negative) Influenza Type A (PCR) Negative PCR FLU A (Negative) Influenza Type B (PCR) Negative PCR FLU B (Negative) RSV (PCR) Negative PCR RSV (Negative) POC Troponin I 0.00 L (0.01-0.04) ng/ml ECG Data Attestation: I personally reviewed and interpreted this ECG as follows: Prior ECG tracings: available for review Interpretation: Normal sinus rhythm with occasional PVCs, rate of 78 beats per minute, normal axis, normal intervals, no ST or T-wave abnormalities. Appears similar to previous EKG on file Discharge Plan Discharge Clinical Impression: SVT (supraventricular tachycardia), Near syncope Patient Disposition: Home, Self-Care Condition: Improved Instructions: Supraventricular Tachycardia (ED), Near Syncope (ED) Additional Instructions: Follow-up with a heat and frost insulator helper in September as scheduled current knee. If you do feel like symptoms are getting worse you can call the the [facility] for a sooner appointment but this would likely the in the [facility]. Cut your dosage lisinopril/hydrochlorothiazide in half. Start taking the Cardizem as directed. Return to emergency department for new or worsening symptoms Prescriptions: New diltiazem HCl [Cardizem CD] 120 mg capsule,extended release 24hr 120 mg PO DAILY Qty: 60 0RF No Action lisinopril-hydrochlorothiazide 10-12.5 mg tablet 1 tab PO QDAY Qty: 90 3RF rosuvastatin [Crestor] 10 mg tablet 10 mg PO QDAY Qty: 90 3RF aspirin 81 mg tablet,delayed release (DR/EC) 81 mg PO QDAY anastrozole 1 mg tablet 1 mg PO QDAY Follow Up/Referrals: Kevin Arroyo MD [Primary Care Provider] - Stand Alone Forms: [employer] Info Instructions
[2023-08-18 14:05] LABS: Albumin* 4.8 g/dL (3.3-5.0); Chloride* 96 mmol/L (96-114); Sodium* 135 mmol/L (135-149)
[2023-08-18 14:06] LABS: Potassium* 3.4 mmol/L (3.6-5.1)
[2023-08-18 14:08] LABS: Alkaline Phosphatase* 66 U/L (40-150); Anion Gap 11 mEq/L (7-15); Aspartate Amino Transferase* 26 U/L (12-35); Bilirubin Total* 0.8 mg/dL (0.1-1.5); Blood Urea Nitrogen* 14 mg/dL (7-30); Carbon Dioxide* 28 mmol/L (20-32); Creatinine* 0.6 mg/dL (0.5-1.5); Estimated Glomerular Filt Rate 95 ml/min
[2023-08-18 14:09] LABS: Alanine Aminotransferase* 23 U/L (4-35); Calcium* 10.2 mg/dL (8.4-10.6); Glucose* 89 mg/dL (60-115)
[2023-08-18 14:32] LABS: PCR FLU A Negative PCR FLU A (Negative); PCR FLU B Negative PCR FLU B (Negative); PCR RSV Negative PCR RSV (Negative); SARS PCR* Negative SARS-CoV-2 (Negative)
[2023-08-18] MEDS: LACTATED RINGERS 1000 ML 1,000 ML IV (14:55)
[2023-08-18] MEDS: ONDANSETRON 2 MG/ML inj 4 MG IVP (14:55)
== END 2023-08-18 16:58 | disposition home or self-care (01) ==
PROVIDERS: Emergency Provider Student in an Organized Health Care Education/Training Program; PCP Family Medicine
DX: R55 Syncope and collapse (principal); I47.10 Supraventricular tachycardia, unspecified
CPT/HCPCS: 36415; 80053; 84484; 85025; 87631; 93005; 96374; 99283; 99284; J2405; J7120

== ENCOUNTER 2023-10-14 14:43 | Outpatient (CLI) | payer MEDICARE, SELFPAY ==
--- OUTSIDE RECORDS SUMMARY | 2023-10-14 14:45 | XMS_ITS | Clinical Summary ---
Author Name Unknown Organization [employer] [facility] Address [place], [place] [address] Care Team Providers Care Investment Banking Analyst Name Role Phone Kevin Arroyo MD Primary Care Provider + Alem Talbot MD Unavailable [phone] Berta Fernandez NP Unavailable Allergies Active Allergy Reactions Criticality Noted Date Comments Hydrocodone-Acetaminophen Hypotension 7 Questionable Medications Medication Sig Dispensed Refills Start Date End Date Status rosuvastatin (CRESTOR) 10 mg tablet Take 10 mg by mouth at bedtime. 07/12/2021 Active traZODone (DESYREL) 50 mg tablet Take 50 mg by mouth at bedtime. 07/05/2021 Active multivitamins-sunil [id number]-ercg-duhhlmk s (Multiple Vitamin, Womens) tab tablet Take 1 Tablet by mouth once daily. 0 08/01/2021 Active lisinopriL (PRINIVIL; ZESTRIL) 10 mg tablet Take 1 Tablet (10 mg) by mouth once daily. 0 02/11/2022 Active lisinopril-hydroc hlorothiazide (10-12.5 mg) tablet (PRINZIDE; ZESTORETIC) Take 1 Tablet by mouth once daily. 07/19/2022 Active anastrozole (ARIMIDEX) 1 mg tabletIndications :Infiltrating ductal carcinoma of left breast (HC) Take 1 Tablet (1 mg) by mouth once daily. 90 Tablet 3 02/27/2023 Active apixaban (Eliquis) 5 mg tabletIndications :PAF (paroxysmal atrial fibrillation) (HC) Take 1 Tablet (5 mg) by mouth two times daily. 180 Tablet 3 10/01/2023 Active dilTIAZem SR (CARDIZEM SR) 120 mg extended release 12 hr capsuleIndication s:SVT (supraventricular tachycardia) (HC) Take 1 tablet (120 mg) EVERY DAY. Due for 6 month follow up in 03/2024. Please call in summer 2023 to schedule. Further refills to be provided after next visit 90 Capsule 1 10/06/2023 Active aspirin (ECOTRIN) 81 mg enteric coated tablet Take 81 mg by mouth once daily with a meal. Every few days 0 08/01/2021 10/01/2023 Discontinued (*Med complete/Reg imen complete/Lev el of care change) Active Problems Problem Noted Date Diagnosed Date Infiltrating ductal carcinoma of left breast 07/2017 Nondisplaced fracture of mid dle third of scaphoid bone of left wrist with delayed healing 10/14/2015 Syncope 09/11/2015 Fall down stairs 09/10/2015 Scalp laceration 09/10/2015 Hyperlipidemia 04/19/2015 Malignant neoplasm of right breast 04/19/2015 History of colon polyps Resolved Problems Problem Noted Date Diagnosed Date Resolved Date Subdural hematoma 10/14/2015 10/19/2019 Contusion of left temporal lobe 09/10/2015 10/19/2019 SDH (subdural hematoma) 09/10/201509/21 Other and unspecified hyperlipidemia 08/03/2006 04/19/2015 Malignant neoplasm of breast (female), unspecified site 08/03/2006 04/19/2015 Overview: Ductal, non-invasive Encounters Date Type Department Care Team Description 10/06/2023 Telephone [facility] [address] [facility] [address] [place] [address] Germán Craven MD Refill Request (diltiazem) 10/01/2023 8:30 AM CDT Office Visit [facility] [address] [place], [place] [id number] Germán Craven MD Arrived 10/01/2023 Telephone [facility] [address] [place] [phone] Germán Craven MD Note Teller Plan (Recs for starting DOAC, echo, and cards follow up--6 months) 10/01/2023 Telephone [facility] [address] [place] [phone] Germán Craven MD Health Maintenance Update from Last 3 Months Immunizations Name Administration Dates Next Due AMB Influenza, IIV4 PF (=>6 mos Flulaval,Fluzone Fluarix)(Flu Clinic Only) 03/15/2014 Influenza RIV4 (Age 18+ Years) PRESERV FREE 03/22 Influenza, High-dose Inactivated 04/19/2019,03/23 Influenza, IIV3 (Age >=3 years) 04/22/2011,04/24,04/14/2007 Influenza, Inactivated IIV3 (Age 65+ Years) Preserv Free 03/16/2018 Pneumococcal Poly,23-Valent (Pneumovax) 12/08/19 19 Pneumococcal conj 13-Valent (Prevnar 13) 017 Tdap 09/10/2015,02/08/2009 Tuberculin (PPD) 07/21/2016,07/02/2016 Zoster (Shingrix-RZV, recombinant) 12/07/2018, Zoster (Zostavax-ZVL, live) 08/01/2011 Family History Medical History Relation Name Comments Stroke Mother Cancer No Family History Cancer-breast No Family History Cancer-colon No Family History Cancer-ovarian No Family History Cancer-prostate No Family History Relation Name Status Comments Mother Social History Tobacco Use Types Packs/Day Years Used Date Smoking Tobacco: Former Cigarettes Q uit: 06/22/1985 Smokeless Tobacco: Never Alcohol Use Standard Drinks/Week Comments No 0 (1 standard drink = 0.6 oz pur e alcohol) one drink in 8 month Social Connections Answer Date Recorded Frequency of Communication with Friends and Fami ly Not on file 06/22/2021 Financial Resource Strain Answer Date R ecorded Difficulty of Paying Living Expenses Not on file 06/22/2021 Difficulty of Paying Living Expenses Not on file 06/22/2021 Sex and Gender Information Value Date Recorded Sex Assigned at Not on file Gender Identity Not on file Sexual Orientation Not on file Obstetrics History Para Term AB IAB SAB Ectopic Multiple Livin g Live Births 3 2 1 1 Date Outcome GA Total Labor Labor/2nd/3rd Weight Sex Delivery Anes PTL Isidra A1 A5 Name Cl in Para Para SAB Last Filed Vital Signs Vital Sign Reading Time Taken Comments Blood Pressure 105/74 02/27/2023 10:07 AM CDT Pulse 80 02/27/2023 10:07 AM CDT Temperature 36.7 ??C (98 ??F) 02/27/2023 10:07 AM CDT Respiratory Rate 16 02/27/2023 10:07 AM CDT Oxygen Saturation 98% 02/27/2023 10:07 AM CDT Inhaled Oxygen Concentration - - Weight 87.2 kg (192 lb 3.2 oz) 02/27/2023 10:07 AM CDT Height 177.8 cm (5' 10) 08/18/2018 11:08 AM ACOUSTICAL ENGINEER Body Mass Index 27.58 08/18/2018 11:08 AM ACOUSTICAL ENGINEER Plan of Treatment Upcoming Encounters Date Type Department Care Team (Late st Contact Info) Description 10/14/2023 3:00 PM CDT Ancillary Procedure [facility] [address] [place] [address] 02/08/2024 1:00 PM CDT Ancillary Procedure [facility] [address] [place] [address] 02/10/2024 11:15 AM CDT Office Visit [facility] [place] [facility] [address] [place] [address] Berta Fernandez, HOUSEKEEPING AIDE [address] [place] [address] Health Maintenance Due Date Last Done Comments Hepatitis C screening for ag e 18-79 01/09/1968 Medicare Wellness for age 65+ 04/16/2016 04/16/2015 Depression screening for age 12+ 11/25/2017 11/26/19 17 BMI (ht and wt on same day) for age 18+ 07/09/2019 07/09/2018, 03/08/2018, 11/18/2017, Additional history exists Lipids for age 45-75 11/25/2021 11/25/2016, 04/16/2015, 07/18/2014, Additional history exists COVID-19 vaccine series (2022- season) 2023 06/05/2022, 03/08/2021, 08/21/2020, Additional history exists Colonoscopy through age 75 08/18/202308/18, 05/15/2008, 05/15/2008 Influenza for age 65+ 02/21/2024 04/02/2020 , 04/19/2019, 03/16/2018, Additional history exists Tetanus booster 09/09/2025 09/10/2015, 02/08/2009 Tdap Completed 09/10/2015, 02/08/2009 Pneumococcal series for age 65+ Completed 9, 11/25/2016 Zoster (shingles) series for age 50+ Completed 12/07/2018, 09/14/2018, 08/01/2011 DEXA/DXA scan for age 65+ Completed 2021, 01/18/2020, 09/04/2017 Medical Devices Implanted Type Area Public Relations Consultant Device Identifier Shelf Expiration Date Model / Serial / Lot Smooth Mpp Gel Mammary Prosth [[id number] Implanted:Qty: 1 on 08/06/2006 at [facility] Explanted:at [facility] (Quantity not on file) Right: Breast [employer] [id number] / [id number] Description:SMOOTH MPP GEL M AMCHARIS PROSTH Power Port Isp Mri 6fr [id number] - Jean Only - [id number] Implanted:Qty: 1 on 10/27/2017 by Cecil Garcia MD at [facility] Right: Chest [employer] 06/21/2019 [id number] / / [id number] Procedures Procedure Name Priority Date/Time Associated Diagnosis Comments XR DXA BONE DENSITY 2 SITES AXIAL Routine 01/27/2022 1:24 PM CDT Infiltrating ductal carcinoma of left breast (HC) Aromatase inhibitor use COLONOSCOPY 08/18/2018 11:26 AM ACOUSTICAL ENGINEER LIPID PANEL W REFLEX MEASURED LDL Routine 11/25/2016 9:48 AM CDT Medicare annual wellness visit, subsequent from Last 3 Months or Most Recently Relevant to Health Maintenance Results * XR DXA BONE DENSITY 2 SITES AXIAL (01/27/2022 1:24 PM CDT) Anatomical Region Laterality Modality Spine, HIPS, HIPL, HIPR Computed Radiography Impressions 01/28/2022 2:29 PM CDT Normal bone density. ?? No significant change in bone density since 2019. RECOMMENDATIONS: The National Osteoporosis Foundation recommends pharmacologic treatment for patients with T-scores of -2.5 or less, patients with prior history of fragility fractures, or patients with 10-year probability of greater than 3% at hips or greater than 20% of suffering major osteoporotic fractures. Recommend continued optimization of calcium and vitamin D intake through dietary means and/or supplementation and regular exercise. Repeat scan recommended in 2 years. Narrative 01/28/2022 2:29 PM CDT For Patients: Results are automatically released to your [facility] account once available, in compliance with federal regulations. This means that you may see your results before your provider has had a chance to review them. Please allow 2-3 business days for your provider to comment on the results. XR DXA Bone Mineral Density (BMD) EXAM LOCATION: [address] [address] PATIENT NAME: Alice Huertas DATE OF : 1950 EXAM DATE: 01/27/2022 REQUESTING PROVIDER: Berta Fernandez NP GENDER AT : female HEIGHT: 5' 10 (08/18/2018) WEIGHT: ??206 lb 4.8 oz (08/02/2021) MENOPAUSAL STATUS: Postmenopausal RACE/ETHNICITY: White RISK FACTORS: Height Loss (2 inches or more), History of Fragility Fracture (at a major site), Smoking (prior) and White Race CURRENT MEDICATION FOR BONE LOSS: NONE INDICATION: left breast cancer on Aromatase inhibitor COMPARISON DATE(S): 2019 DXA scans are compared to prior studies for a patient only when the two (or more) studies were performed on the same scanner. It is not possible to compare data generated on one scanner to data from another because there are not standards in DXA equipment. This applies even if the two scanners are made by the same tool crib supervisor. PROCEDURE: Dual-energy x-ray absorptiometry performed with routine technique. Reporting is completed in the form of a T-score. The T-score represents the standard deviation from peak bone mass based on young healthy adult. A Z-score is used for diagnosis in premenopausal women, and for men under the age of 50. FINDINGS: RESULT LUMBAR SPINE L1 - L4 BMD: 1.160 g/cm2 T-Score: - 0.2 Change from prior in 2020: ??Decrease 1.8%. RESULTS FEMUR Left femoral neck BMD: 0.993 g/cm2 T-Score: - 0.3 Change from prior in 2020: ??Decrease 0.1%. Right femoral neck BMD: 0.966 g/cm2 T-Score: - 0.5 Change from prior in 2020: ??Increase 1.3%. Left hip BMD: 1.055 g/cm2 T-Score: + 0.4 Change from prior in 2020: ??Increase 1.4%. Right hip BMD: 0.967 g/cm2 T-Score: - 0.3 Change from prior in 2020: ??Increase 3.0%. WHO criteria: Normal: T-score at or above -1 SD Osteopenia: T-score between -1.1 and -2.4 SD Osteoporosis: T-score at or below -2.5 SD Betra Fernandez NP DEXA * COLONOSCOPY (08/18/2018 11:26 AM ACOUSTICAL ENGINEER) 08/18/2018 11:2 6 AM ACOUSTICAL ENGINEER Narrative Transcriptions Cecil Garcia MD - 08/18/2018 2:52 PM CST Patient Name: Alice Huertas Procedure Date: 08/18/2018 Gender: Female Date of : 1950 Admit Type: Ambulatory Procedure: Colonoscopy Proceduralist: Cecil Suggs One Indications/Pre-Op Diagnosis: High risk colon cancer surveillance:Personal history of colonic polyps Medications: Propofol per Anesthesia, General Anesthesia, See the Anesthesia note for documentation of the administered medications Procedure Description: The patient had risks, benefits and alternatives explained to andgave informed consent. The patient had a stable cardiopulmonary status and judged an adequate candidate for conscious sedation. The colonoscope was passed through the anus and advanced to thececum, identified by appendiceal orifice and ileocecal valve. Thecolonoscopy was performed without difficulty. The patient tolerated the procedure well. The quality of the bowel preparation was good. The ileocecal valve, appendiceal orifice, and rectum were photographed. Complications: No immediate complications. Estimated Blood Loss & Specimen: Estimated blood loss: none. Specimen collected - Yes and sent to Laboratory Findings: The perianal and digital rectal examinations were normal. A 6 mm polyp was found in the hepatic flexure. The polyp was sessile. The polyp was removed with a hot snare. Resection and retrieval were complete. A 10 mm polyp was found in the mid sigmoid colon. The polyp was semi-pedunculated. The polyp was removed with a hot snare. Resectionand retrieval were complete. A few medium-mouthed diverticula were found in the sigmoid colon. Retroflexion in the right colon was performed. The retroflexed view of the distal rectum and anal verge was normaland showed no anal or rectal abnormalities. The exam was otherwise without abnormality. Impressions/Post-Op Diagnosis: - One 6 mm polyp at the hepatic flexure, removed with a hot snare. Resected and retrieved. - One 10 mm polyp in the mid sigmoid colon, removed with a hot snare. Resected and retrieved. - Diverticulosis in the sigmoid colon. - The examination was otherwise normal. Recommendation: - Discharge patient to home. - Resume previous diet. - Continue present medications. - Await pathology results. - Repeat colonoscopy in 5 years for surveillance. Cecil Garcia, 08/18/2018 12:27:46 PM This report has been signed electronically. Note Initiated On: 08/18/2018 11:26 AM Cecil Garcia MD PROCEDURE ORD * (ABNORMAL) LIPID PANEL W REFLEX MEASURED LDL (11/25/2016 9:48 AM CDT) CHOLESTEROL,TOTAL 311(H) 100 - 199 mg/dL 11/25/2016 11:35 AM CDT [facility] TRIGLYCERIDES 72 <150 mg/dL 11/25/2016 11:35 AM CDT [facility] HDL CHOLESTEROL 80 >40 mg/dL 7 11:35 AM CDT [facility] NON-HDL CHOLESTEROL 231(H) <145 mg/dl 11/25/2016 11:35 AM CDT [facility] CHOL/HDL RATIO 3.89 <4.50 11/25/2016 11:35 AM CDT [facility] LDL CHOLESTEROL 217(H) <=130 mg/dL 11/25/2016 11:35 AM CDT [facility] PATIENT STATUS NOT GIVEN 11/25/2016 11:35 AM CDT [facility] Blood BLOOD SPECIMEN / Unknown Venipuncture / Unknown 11/25/2016 9:48 AM CDT 11/25/2016 9:48 AM CDT Kevin Arroyo MD CHEMISTRY [facility] [address] [place] [address] from Last 3 Months or Most Recently Relevant to Health Maintenance Advance Directives * Full Code (Latest Code Status on File) Date Activated Date Inactivated Comments 10/27/2017 12:22 PM 10/27/2017 3:32 PM * Full Code Date Activated Date Inactivated Comments 10/07/2017 5:41 PM 10/09/2017 11:47 AM * Full Code Date Activated Date Inactivated Comments 08/06/2006 6:41 AM 08/06/2006 11:56 AM Care Teams Investment Banking Analyst Relationship Specialty Start Date End Date Kevin Arroyo MD [address] [place] [address] PCP - General 08/03/06 Alem Talbot MD [facility] [place] [address] Oncology Hematology and Oncology 01/16/20 Berta Fernandez, HOUSEKEEPING AIDE [address] [place] [address] [place] [address] Oncology Nurse Practitioner - Family 01/16/20
== END 2023-10-14 14:44 | disposition home or self-care (01) ==
LOC: RAD 14:44
PROVIDERS: PCP Family Medicine; Visit Provider Internal Medicine
DX: I48.0 Paroxysmal atrial fibrillation (principal); I35.1 Nonrheumatic aortic (valve) insufficiency
CPT/HCPCS: 93306

== ENCOUNTER 2024-08-03 08:09 | Outpatient (CLI) | payer MEDICARE, SELFPAY | END 2024-08-03 08:10 | disposition home or self-care (01) | PROVIDERS: PCP Family Medicine; Visit Provider Family Medicine | DX: E78.2 Mixed hyperlipidemia (principal); I10 Essential (primary) hypertension | CPT/HCPCS: 80048; 80061; 84460 ==

== ENCOUNTER 2024-09-19 14:17 | Emergency (ER) | payer MEDICARE, SELFPAY ==
--- OUTSIDE RECORDS SUMMARY | 2024-09-19 14:19 | XMS_ITS | Clinical Summary ---
Author Organization [facility] Address [address] [place] [id number] Care Team Providers Care Health Care Recruiter Name Role Phone Kevin Arroyo MD Primary Care Provider + Alem Talbot MD Unavailable [phone] Berta Fernandez NP Unavailable Allergies Active Allergy Reactions Criticality Noted Date Comments Hydrocodone-Acetaminophen Hypotension 7 Questionable Medications rosuvastatin (CRESTOR) 10 mg tablet Take 10 mg by mouth at bedtime. 07/12/2021 Active lisinopril-hydro chlorothiazide (10-12.5 mg) tablet (PRINZIDE; ZESTORETIC) Take 1 Tablet by mouth once daily. 1/2 tab daily 07/19/2022 Active apixaban (Eliquis) 5 mg tabletIndication s:PAF (paroxysmal atrial fibrillation) (HC) Take 1 Tablet (5 mg) by mouth two times daily. 180 Tablet 3 10/01/2023 Active anastrozole (ARIMIDEX) 1 mg tabletIndication s:Infiltrating ductal carcinoma of left breast (HC) TAKE ONE TABLET BY MOUTH EVERY DAY 90 Tablet 3 02/29/2024 Active metoprolol succinate (TOPROL XL) 25 mg Sustained-Releas e tabletIndication s:PAF (paroxysmal atrial fibrillation) (HC),Hypertensio n, unspecified type Take 1 Tablet (25 mg) by mouth once daily. 90 Tablet 3 06/09/2024 Active Active Problems Problem Noted Date Diagnosed Date [...] of breast (female), unspecified site 08/03/2006 04/19/2015 Overview (08/03/2006): Ductal, non-invasive Encounters Date Type Department Care Team Description 08/12/[address] [address] Berta Fernandez, STOCK FEEDER Appointment from Last 3 Months Immunizations Immunization Administration Dates Next Due AMB Influenza, IIV4 [...] Paying Living Expenses Not on file 06/22/2021 Comments No Sex and Gender Information Value Date Recorded Sex Assigned at Not on file Legal Sex Female 6:28 AM DOT COMPLIANCE MANAGER Gender Identity Not on file Sexual Orientation Not on file 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 Not on file Not on file Not on file Obstetrics History Para Term AB IAB SAB Ectopic Multiple Livin g Live Births 3 2 1 1 Date Outcome GA Total Labor Labor/2nd/3rd Weight Sex Type Anes PTL Isidra A1 A5 Name Clin Para Para SAB Last Filed Vital Signs Vital Sign Reading Time Taken Comments Blood Pressure 123/61 05/10/2024 1:04 PM DOT COMPLIANCE MANAGER Pulse 83 05/10/2024 1:04 PM DOT COMPLIANCE MANAGER Temperature 36.8 C (98.3 F) 03/30/2024 12:38 PM CDT Respiratory Rate 16 03/30/2024 12:38 PM CDT Oxygen Saturation 97% 05/10/2024 1:04 PM DOT COMPLIANCE MANAGER Inhaled Oxygen Concentration - - Weight 89.5 kg (197 lb 4.8 oz) 03/30/2024 12:38 PM CDT Height 177.8 cm (5' 10) 08/18/2018 11:08 AM DOT COMPLIANCE MANAGER Body Mass Index 28.31 08/18/2018 11:08 AM DOT COMPLIANCE MANAGER Plan of Treatment Upcoming Encounters Date Type Department Care Team (Late st Contact Info) Description 04/05/2025 1:15 PM CDT Office Visit [facility] [address] [facility] [place] [address] Berta Fernandez, STOCK FEEDER [address] [place] [address] Health Maintenance Due Date Last Done Comments Hepatitis C screening for ag e 18-79 01/09/1968 RSV vaccine for adults or (1 - Risk 60-74 years 1-dose series) 2010 Medicare Wellness for age 65+ 04/16/2016 04/16/2015 Depression screening for age 12+ 11/25/2017 11/26/19 17 BMI (ht and wt on same day) for age 18+ 07/09/2019 07/09/2018, 03/08/2018, 11/18/2017, Additional history exists Lipids for age 45-75 11/25/2021 11/25/2016, 04/16/2015, 07/18/2014, Additional history exists Colonoscopy through age 75 08/18/202308/18, 05/15/2008, 05/15/2008 COVID-19 vaccine series ( season) 2024 06/05/2022, 03/08/2021, 08/21/2020, Additional history exists Influenza Vaccine (#1) 2024 , 04/19/2019, 03/16/2018, Additional history exists Tetanus booster 09/09/2025 09/10/2015, 02/08/2009 Tdap Completed 09/10/2015, 02/08/2009 Pneumococcal series for age 50+ Completed 9, 11/25/2016 Zoster (shingles) series for age 50+ Completed 12/07/2018, 09/14/2018, 08/01/2011 DEXA/DXA scan for age 65+ Completed 2023, 01/27/2022, 01/18/2020, Additional history exists Medical Devices Implanted Type Area Bridge Design Engineer Device Identifier Shelf Expiration Date Model / Serial / Lot Smooth Mpp Gel Mammary Prosth [[id number] Implanted:Qty: 1 on 08/06/2006 at [facility] Explanted:at [facility] (Quantity not on file) Right: Breast [employer] [id number] / [id number] Description:SMOOTH MPP GEL M [facility] Power Port Isp Mri 6fr [id number] - [facility] Only - [id number] Implanted:Qty: 1 on 10/27/2017 by Cecil Garcia MD at [facility] Right: Chest [employer] 06/21/2019 [id number] / / [id number] Procedures Procedure Name Priority Date/Time Associated Diagnosis Comments XR DXA BONE DENSITY 2 SITES AXIAL Routine 03/23/2024 1:21 PM CDT Infiltrating ductal carcinoma of left breast (HC) Aromatase inhibitor use COLONOSCOPY 08/18/2018 11:26 AM DOT COMPLIANCE MANAGER LIPID PANEL W REFLEX MEASURED LDL Routine 11/25/2016 9:48 AM CDT Medicare annual wellness visit, subsequent from Last 3 Months or Most Recently Relevant to Health Maintenance Results * XR DXA BONE DENSITY 2 SITES AXIAL (03/23/2024 1:21 PM CDT) Anatomical Region Laterality Modality Spine, HIPS, HIPL, HIPR Computed Radiography Impressions 03/24/2024 9:42 AM CDT Normal bone density. RECOMMENDATIONS: The National Osteoporosis Foundation recommends pharmacologic treatment for patients with T-scores of -2.5 or less, patients with prior history of fragility fractures, or patients with 10-year probability of greater than 3% at hips or greater than 20% of suffering major osteoporotic fractures. Recommend continued optimization of calcium and vitamin D intake through dietary means and/or supplementation and regular exercise. ROLDAN GARCIA M.D. [facility] [employer] [email or web address]/sol Narrative 03/24/2024 9:42 AM CDT For Patients: Results are automatically released to your [employer]) account once available, in compliance with federal regulations. This means that you may see your results before your provider has had a chance to review them. Please allow 2-3 business days for your provider to comment on the results. XR DXA Bone Mineral Density (BMD) EXAM LOCATION: [address] [address] PATIENT NAME: Alice Englishmaria luz DATE OF : 1950 EXAM DATE: 03/23/2024 REQUESTING PROVIDER: Berta Fernandez NP GENDER AT : female HEIGHT: 70 inches WEIGHT: 192 pounds MENOPAUSAL STATUS: Postmenopausal RACE/ETHNICITY: White RISK FACTORS: Aromatase Inhibitors (Arimidex, etc.), History of Fragility Fracture (at a major site), Smoking (prior), and White Race CURRENT MEDICATION FOR BONE LOSS: NONE INDICATION: Infiltrating ductal carcinoma of left breast (HC); Aromatase inhibitor use COMPARISON DATE(S): 2021 DXA scans are compared to prior studies for a patient only when the two (or more) studies were performed on the same scanner. It is not possible to compare data generated on one scanner to data from another because there are not standards in DXA equipment. This applies even if the two scanners are made by the same installation drafter. PROCEDURE: Dual-energy x-ray absorptiometry performed with routine technique. Reporting is completed in the form of a T-score. The T-score represents the standard deviation from peak bone mass based on young healthy adult. A Z-score is used for diagnosis in premenopausal women, and for men under the age of 50. FINDINGS: RESULT LUMBAR SPINE L1 - L4 BMD: 1.139 g/cm2 T-Score: - 0.3 Z-Score: + 0.7 Trending: Change from prior in 2021: Decrease 1.8%. RESULTS FEMUR Left femoral neck BMD: 0.958 g/cm2 T-Score: - 0.6 Z-Score: + 0.8 Right femoral neck BMD: 0.951 g/cm2 T-Score: - 0.6 Z-Score: + 0.8 Left total hip BMD: 1.049 g/cm2 T-Score: + 0.3 Z-Score: + 1.5 Right total hip BMD: 0.938 g/cm2 T-Score: - 0.6 Z-Score: + 0.6 Trending: Neck Mean Femur BMD: 0.954 g/cm2 Change from prior in 2021: Decrease 2.6%. WHO criteria: Normal: T-score at or above -1 SD Osteopenia: T-score between -1.1 and -2.4 SD Osteoporosis: T-score at or below -2.5 SD us Berta Fernandez NP DEXA Final Result * COLONOSCOPY (08/18/2018 11:26 AM DOT COMPLIANCE MANAGER) 08/18/2018 11:2 6 AM DOT COMPLIANCE MANAGER Narrative Transcriptions Cecil Garcia MD - 08/18/2018 2:52 PM CST Patient Name: Alice Huertas Procedure Date: 08/18/2018 Gender: Female Date of : 1950 Admit Type: Ambulatory Procedure: Colonoscopy Proceduralist: Cecil Mcgraw Indications/Pre-Op Diagnosis: High risk colon cancer surveillance:Personal [...] electronically. Note Initiated On: 08/18/2018 11:26 AM us Cecil Garcia MD PROCEDURE ORD Edited Re sult - Final * (ABNORMAL) LIPID PANEL W REFLEX MEASURED LDL (11/25/2016 9:48 AM CDT) CHOLESTEROL,TOTAL 311(H) 100 - 199 mg/dL 11/25/2016 11:35 AM [facility] TRIGLYCERIDES 72 <150 mg/dL 11/25/2016 11:35 AM T [facility] HDL CHOLESTEROL 80 >40 mg/dL 7 11:35 AM T [facility] NON-HDL CHOLESTEROL 231(H) <145 mg/dl 11/25/2016 11:35 AM T [facility] CHOL/HDL RATIO 3.89 <4.50 11/25/2016 11:35 AM T [facility] LDL CHOLESTEROL 217(H) <=130 mg/dL 11/25/2016 11:35 AM [facility] PATIENT STATUS NOT GIVEN 11/25/2016 11:35 AM [facility] Blood BLOOD SPECIMEN / Unknown Venipuncture / Unknown 11/25/2016 9:48 AM CDT 11/25/2016 9:48 AM CDT Kevin Arroyo MD CHEMISTRY Final Re sult [address] [id number] from Last 3 Months or Most Recently Relevant to Health Maintenance Insurance MEDICARE PART A HB ONLY BLUE CROSS MEDICARE ADVANTAGE MR [facility] MR BC [employer] COMP Advance Directives * Full Code (Latest Code Status on File) Date Activated Date Inactivated Comments 10/27/2017 12:22 PM 10/27/2017 3:32 PM * Full Code Date Activated Date Inactivated Comments 10/07/2017 5:41 PM 10/09/2017 11:47 AM * Full Code Date Activated Date Inactivated Comments 08/06/2006 6:41 AM 08/06/2006 11:56 AM Care Teams Health Care Recruiter Relationship Specialty Start Date End Date Kevin Arroyo MD [address] [place] [address] PCP - General 08/03/06 Alem Talbot MD [address] [place] [address] Oncology Hematology and Oncology 01/16/20 Berta Fernandez, RONALD [address] [place] [address] Oncology Nurse Practitioner - Family 01/16/20
[2024-09-19 14:50] VITALS: BP 124/77; PULSE 75; RESP 18; TEMP 36.9; O2SAT 97; BMI 27.6
[2024-09-19 15:15] VITALS: O2SAT 96
--- NOTE | 2024-09-19 16:22 | ED.GENADULT ---
HPI - General Adult General Date Seen: 09/19/24 Chief complaint: Dizziness/Vertigo Stated complaint: Dizziness Time Seen by Provider: 09/19/24 16:02 History of Present Illness HPI narrative: Patient is a 74-year-old woman with a history of atrial fibrillation as well as SVT, chronically anticoagulated on Eliquis, who presents for evaluation of lightheadedness today. She says that around 1:00 a.m. she was driving to an eye appointment at [facility]. She says she had gone maybe 3 blocks when she suddenly felt very lightheaded. She is clear that it is not a spinning or vertiginous sensation, it is just a sensation of warmth and feeling like she might pain. She has not actually fainted. She says she has had symptoms like this when she has had atrial fibrillation. She went to the clinic, noted to them that she was feeling lightheaded. She says initially they felt her pulse and said it felt fine, they gave her some juice. When she said that she did not think that she could stand up because she was too lightheaded they checked her pulse again and then they told her that it was irregular and they recommended that she come to the ER. She has not had any chest pain or shortness of breath. She has not had any headache, denies back or abdominal pain, nausea or vomiting, diarrhea black or bloody stools, or any other symptoms over the past couple of days. She does note she has significant stressors right now, her son who is 49 was recently diagnosed with leukodystrophy and she is dealing with all the ramifications of that. She also notes that her wanted to get a new dog so they have a puppy at home as well. Related Data Home Medications ?Medication ?Instructions ?Recorded ?Confirmed anastrozole 1 mg tablet 1 mg PO QDAY 12/26/21 09/19/24 Previous Rx's ?Medication ?Instructions ?Recorded apixaban 5 mg tablet (Eliquis) 5 mg PO BID #180 tabs 08/03/24 metoprolol succinate 25 mg 25 mg PO DAILY #90 tabs 08/03/24 tablet,extended release 24 hr rosuvastatin 10 mg tablet (Crestor) 10 mg PO QDAY #90 tabs 08/03/24 Allergies Allergy/AdvReac Type Severity Reaction Status Date / Time No Known Drug Allergies Allergy Verified 08/03/24 07:50 Review of Systems Status of ROS: Reports: 10 or more systems reviewed and unremarkable except as noted in History and below [facility] Medical History Mixed hyperlipidemia ?E78.2 - Mixed hyperlipidemia (ICD-10) Primary hypertension ?I10 - Essential (primary) hypertension (ICD-10) Osteoarthritis of right shoulder ?M19.011 - Primary osteoarthritis, right shoulder (ICD-10) Fracture of greater tuberosity of right humerus ?S42.251A - Displaced fracture of greater tuberosity of right humerus, initial encounter for closed fracture (ICD-10) Rotator cuff tear, right (12/2021) ?M75.101 - Unspecified rotator cuff tear or rupture of right shoulder, not specified as traumatic (ICD-10) Onychomycosis ?B35.1 - Tinea unguium (ICD-10) Malignant neoplasm of right breast (2002) ?C50.911 - Malignant neoplasm of unspecified site of right female breast (ICD-10) Infiltrating ductal carcinoma of left breast (09/09/17) ?C50.912 - Malignant neoplasm of unspecified site of left female breast (ICD-10) History of traumatic brain injury (2015) ?Z87.820 - Personal history of traumatic brain injury (ICD-10) History of colonic polyps (08/18/18) ?Z86.010 - Personal history of colonic polyps (ICD-10) Chemotherapy-induced neuropathy ?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 - Drug-induced polyneuropathy (ICD-10) ?T45.1X5A - Adverse effect of antineoplastic and immunosuppressive drugs, initial encounter (ICD-10) Insomnia ?G47.00 - Insomnia, unspecified (ICD-10) Surgical History Status post excision of Boateng's neuroma (2004) ?Z98.890 - Other specified postprocedural states (ICD-10) ?Z86.69 - Personal history of other diseases of the nervous system and sense organs (ICD-10) History of tubal ligation ?Z98.51 - Tubal ligation status (ICD-10) History of colonoscopy (08/18/18) ?Z98.890 - Other specified postprocedural states (ICD-10) History of breast reconstruction ?Z98.890 - Other specified postprocedural states (ICD-10) History of bilateral mastectomy (2002) ?Z90.13 - Acquired absence of bilateral breasts and nipples (ICD-10) Family History Mother Stroke, Onset Age: 78 Social History Narrative: -[place], [place], non-smoker, social EtOH What is your current living situation?: I presently have a place to live Problems where you live: no known problems In the past 12 months, utilities in danger of being shut off: no In past 12 months, lack of transportation kept you from medical appts, meetings, work, or getting things needed for daily living: no In the past 12 mos, have been you worried that your food would run out before you had money to buy more?: never true In the past 12 mos, the food you bought just didn't last and you didn't have money to buy more?: never true Smoking Status: Former smoker Do you use any of these nicotine containing products: None Second hand tobacco smoke exposure: No How often do you have a drink containing alcohol: monthly or less AUDIT-C Alcohol total score: 1 Non-prescribed substance use: denies use How often does anyone, including family, friends and others, physically hurt you: never How often does anyone, including family, friends and others, insult or talk down to you: never How often does anyone, including family, friends and others, threaten you with harm: never How often does anyone, including family, friends and others, scream or curse at you: never service: No Exam Narrative: Exam Narrative: Vital signs reviewed In general, alert, nontoxic elderly woman. Conversant, breathing easily. Head: Normocephalic, atraumatic. Eyes: Sclera clear. Pupils equal and reactive. Extraocular movements are full, no nystagmus. ENT: Mucous membranes moist. Neck: Supple without adenopathy. Heart: Regular rate and rhythm without murmur. Lungs: Clear. No increased work of breathing, crackles or wheezes. Abdomen: Soft, nontender to palpation. Extremities: Well perfused, pulses intact. No significant edema. Neurologic: Alert, conversant. Speech fluent, face symmetric. Moves all extremities equally. Strength is equal in upper and lower extremities. Cerebellar functions intact by finger-nose testing. Skin: Warm, dry well perfused. Affect: Normal. Const: Vital Signs, click to edit/add: Vital Signs - 24 hr 09/19/24 14:50 09/19/24 15:15 09/19/24 16:23 Temperature 98.4 F Pulse Rate [Pulse Oximeter] 75 65 Pulse Rate [orthos tatic lying Right Brachial] Pulse Rate [orthos tatic sitting Radi al] Pulse Rate [orthos tatic standing Rig ht Brachial] Respiratory Rate 18 Blood Pressure [Ri ght Upper Arm] 124/77 143/80 H Blood Pressure [or thostatic lying Ri ght Arm] Blood Pressure [or thostatic sitting Right Arm] Blood Pressure [or thostatic standing Right Arm] Pulse Oximetry 97 96 98 Oxygen Delivery Me thod Room Air Room Air 09/19/24 16:38 09/19/24 17:05 Temperature Pulse Rate [Pulse Oximeter] 61 Pulse Rate [orthos tatic lying Right Brachial] 68 Pulse Rate [orthos tatic sitting Radi al] 67 Pulse Rate [orthos tatic standing Rig ht Brachial] 68 Respiratory Rate 20 Blood Pressure [Ri ght Upper Arm] 144/67 H Blood Pressure [or thostatic lying Ri ght Arm] 147/77 H Blood Pressure [or thostatic sitting Right Arm] 159/75 H Blood Pressure [or thostatic standing Right Arm] 143/80 H Pulse Oximetry 97 Oxygen Delivery Me thod Room Air Course Course ED Course: Patient is maintained on the monitor. I do see that she is generally in a sinus rhythm, ventricular rate on the monitor is running about 68. She has had a few brief runs of what is possibly atrial flutter, the complexes are slightly wide, regular, and a rate probably in the 140s. These are brief, lasting less than 15 beats. She is symptomatic with these, but has not had syncope. Will go ahead and check some labs including electrolytes, hemoglobin, troponin, will get a formal EKG. Diagnostic considerations would include an arrhythmia such as well were seeing on the monitor, vagal episode, dehydration orthostasis, metabolic derangement, anemia, acute coronary syndrome among others. Labs are all reviewed and unremarkable. She had a little bit of fluid here, she is feeling improved and feels reassured knowing that nothing seems to be seriously wrong. Unclear to me whether these runs of tachycardia or contributing to her symptoms, perhaps she had more persistent runs earlier. It does look like looking through her cardiology notes that she has had a couple of ZIO patch as and has tended to have runs of SVT, so not sure that this is really different for her. In any case, she is anticoagulated, she has been in sinus rhythm for the vast majority of time here. I think she can be reasonably discharged home. If she is having persistent symptoms or she finds herself in atrial fib flutter or SVT for longer period, or has syncope, return to the ER at any time. Otherwise primary care follow-up in the coming week for persistent symptoms. Vital Signs Vital signs: Initial Vital Signs Temperature 98.4 F 09/19/24 14:50 Temperature Source Temporal Artery Scan 09/19/24 14:50 Pulse Rate 75 09/19/24 14:50 Pulse Rhythm Irregular 09/19/24 14:50 Respiratory Rate 18 09/19/24 14:50 Blood Pressure 124/77 09/19/24 14:50 Blood Pressure Mean 92 09/19/24 14:50 Pulse Oximetry 97 09/19/24 14:50 Oxygen Delivery Method Room Air 09/19/24 14:50 Vital Signs Temperature 98.4 F 09/19/24 14:50 Pulse Rate 75 09/19/24 14:50 Respiratory Rate 18 09/19/24 14:50 Blood Pressure 124/77 09/19/24 14:50 Pulse Oximetry 97 09/19/24 14:50 Oxygen Delivery Method Room Air 09/19/24 14:50 Temperature 98.4 F 09/19/24 14:50 Pulse Rate 61 09/19/24 17:05 Respiratory Rate 20 09/19/24 17:05 Blood Pressure 144/67 H 09/19/24 17:05 Pulse Oximetry 97 09/19/24 17:05 Oxygen Delivery Method Room Air 09/19/24 17:05 Medications Administered Medications: Discontinued Medications Generic Name Dose Route Start Last Admin Trade Name Freq PRN Reason Stop Dose Admin Sodium Chloride 500 mls @ 500 mls/hr 09/19/24 16:16 09/19/24 16:50 0.9 % Sodium Chloride 500 Ml IV 09/19/24 17:15 500 mls/hr .Q1H ONE Administration Medical Decision Making Lab Data Labs: Lab Results 09/19/24 09/19/24 Range/Units 16:50 18:30 WBC 3.37 L (4.50-11.00) K/uL RBC 4.56 (4.00-5.20) m/uL Hgb 13.3 (12.0-16.0) gm/dL Hct 40.4 (33.0-51.0) % MCV 89 (80-100) fL MCH 29 (26-34) pg MCHC 33 (32-36) gm/dL RDW Coeff of Obdulia 13.4 (11.5-15.5) % Plt Count 193 (140-440) K/uL Neut % (Auto) 58.7 (42.0-72.0) % Lymph % (Auto) 27.9 (20-44) % [place] % (Auto) 11.6 H (0.0-11.0) % Eos % (Auto) 0.9 (0.0-7.0) % Baso % (Auto) 0.6 (0.0-3.0) % Neut # (Auto) 2.00 (1.7-7.0) K/uL Lymph # (Auto) 0.90 (0.90-2.90) K/uL [place] # (Auto) 0.40 (0.00-0.90) K/UL Eos # (Auto) 0.00 (0.00-0.50) K/uL Baso # (Auto) 0.00 (0.00-0.30) K/uL Abs Immat Gran (auto) 0.00 (0.00-0.30) K/uL Imm/Tot Granulo (auto) 0.3 % Sodium 140 (135-149) mmol/L Potassium 3.8 (3.6-5.1) mmol/L Chloride 102 (96-114) mmol/L Carbon Dioxide 32 (20-32) mmol/L Anion Gap 6 L (7-15) mEq/L BUN 14 (7-30) mg/dL Creatinine 0.6 (0.5-1.5) mg/dL Estimated Creat Clear 53.37 Estimated GFR 94 ml/min Glucose 87 (60-115) mg/dL Calcium 9.3 (8.4-10.6) mg/dL Magnesium 2.1 (1.5-2.6) mg/dL Total Bilirubin 0.9 (0.1-1.5) mg/dL AST 32 (12-35) U/L ALT 29 (4-35) U/L Alkaline Phosphatase 65 (40-150) U/L Total Protein 7.0 (6.0-8.3) g/dL Albumin 4.4 (3.3-5.0) g/dL TSH 1.160 (0.270-4.200) uIU/mL Urine Color Yellow (Yellow) Urine Appearance Clear (Clear) Urine pH 7.0 (5.0-8.5) Ur Specific [place] 1.010 (1.000-1.030) Urine Protein Negative (Negative) Urine Glucose (UA) Negative (Negative) Urine Ketones Negative (Negative) Urine Blood Negative (Negative) Urine Nitrite Negative (Negative) Urine Bilirubin Negative (Negative) Urine Urobilinogen 0.2 (0.2-1.0) Ur Leukocyte Esterase Negative (Negative) Urine RBC 0-2 (0-2) Urine WBC 0-2 (0-5) Ur Squamous Epith Cells Few (None-Few) Urine Bacteria None (None) POC Troponin I 0.00 L (0.01-0.04) ng/ml Discharge Plan Discharge Clinical Impression: Lightheadedness Patient Disposition: Home, Self-Care Condition: Improved Instructions: Lightheadedness (ED) Additional Instructions: Your tests today are all reassuring, blood counts, electrolytes kidney function liver function etcetera are all normal. You did have a couple of short runs of what looked like possibly atrial flutter, this could also been SVT, but these resolved within 10-15 beats on their own. I am not sure whether something like that could have contributed to your symptoms earlier, if you are having persistent symptoms or feel that you are in atrial fibrillation persistently and you have associated symptoms, return to the emergency department at any time. Otherwise, see her primary doctor if you are continuing have concerns. Prescriptions: No Action rosuvastatin [Crestor] 10 mg tablet 10 mg PO QDAY Qty: 90 3RF metoprolol succinate 25 mg tablet extended release 24 hr 25 mg PO DAILY Qty: 90 3RF Eliquis 5 mg tablet 5 mg PO BID Qty: 180 3RF anastrozole 1 mg tablet 1 mg PO QDAY Follow Up/Referrals: Kevin Arroyo MD [Primary Care Provider] - Stand Alone Forms: FriendsClear Info Instructions
[2024-09-19 16:23] VITALS: BP 143/80; PULSE 65; O2SAT 98
[2024-09-19 16:38] VITALS: BP 143/80; BP 147/77; BP 159/75; PULSE 67; PULSE 68
[2024-09-19] MEDS: 0.9 % SODIUM CHLORIDE 500 ML 500 ML IV (16:50)
[2024-09-19 17:00] LABS: Basophils Percent Auto 0.6 % (0.0-3.0); Eosinophils Percent Auto 0.9 % (0.0-7.0); Hematocrit 40.4 % (33.0-51.0); Hemoglobin* 13.3 gm/dL (12.0-16.0); Immature Granulocytes Pct Auto 0.3 %; Lymphocytes Percent Auto 27.9 % (20-44); Mean Corpuscular HGB Conc 33 gm/dL (32-36); Mean Corpuscular Hemoglobin 29 pg (26-34); Mean Corpuscular Volume 89 fL (80-100); Monocytes Percent Auto 11.6 % (0.0-11.0); Neutrophils Percent Auto 58.7 % (42.0-72.0); Platelet Count* 193 K/uL (140-440); RDW Coefficient of Variation % 13.4 % (11.5-15.5); Red Blood Count 4.56 m/uL (4.00-5.20); White Blood Count* 3.37 K/uL (4.50-11.00)
[2024-09-19 17:02] LABS: Slide Review Reflex No
[2024-09-19 17:05] VITALS: BP 144/67; PULSE 61; RESP 20; O2SAT 97
--- OUTSIDE RECORDS SUMMARY | 2024-09-19 17:16 | XMS_ITS | Clinical Summary ---
Author Organization [employer] [facility] Address [address] [place] [id number] Care Team Providers Care Gambling Supervisor Name Role Phone Kevin Arroyo MD Primary Care Provider + Alem Talbot MD Unavailable [phone] Berta Fernandez NP Unavailable Allergies Active Allergy [...] Type Department Care Team Description 08/12/[address] [address] Berta Fernandez, COMPUTER SYSTEMS HARDWARE ANALYST Appointment from Last 3 Months Immunizations Immunization [...] on file Legal Sex Female 6:28 AM BULK PLANT OPERATOR Gender Identity Not on file Sexual Orientation [...] Comments Blood Pressure 123/61 05/10/2024 1:04 PM BULK PLANT OPERATOR Pulse 83 05/10/2024 1:04 PM BULK PLANT OPERATOR Temperature 36.8 C (98.3 F) 03/30/2024 12:38 PM CDT Respiratory Rate 16 03/30/2024 12:38 PM CDT Oxygen Saturation 97% 05/10/2024 1:04 PM BULK PLANT OPERATOR Inhaled Oxygen Concentration - - Weight 89.5 kg (197 lb 4.8 oz) 03/30/2024 12:38 PM CDT Height 177.8 cm (5' 10) 08/18/2018 11:08 AM BULK PLANT OPERATOR Body Mass Index 28.31 08/18/2018 11:08 AM BULK PLANT OPERATOR Plan of Treatment Upcoming Encounters Date Type Department Care Team (Late st Contact Info) Description 04/05/2025 1:15 PM CDT Office Visit [facility] [address] [facility] [place] [address] Berta Fernandez, COMPUTER SYSTEMS HARDWARE ANALYST [address] [place] [address] Health Maintenance Due Date Last Done Comments [...] history exists Medical Devices Implanted Type Area Leather Leveler Device Identifier Shelf Expiration Date Model / Serial / Lot Smooth Mpp Gel Mammary Prosth [[id number]][ Implanted:Qty: 1 on 08/06/2006 at [facility] Explanted:at [facility] (Quantity not on file) Right: Breast [employer] [id number] / [id number] Description:SMOOTH MPP GEL M [facility] Power Port Isp Mri 6fr [id number] - [facility] Only - [id number] Implanted:Qty: 1 on 10/27/2017 by Cecil Garcia MD at [facility] Right: Chest [employer] 06/21/2019 [id number] / / [id number] Procedures Procedure Name Priority Date/Time Associated Diagnosis Comments XR DXA BONE DENSITY 2 SITES AXIAL Routine 03/23/2024 1:21 PM CDT Infiltrating ductal carcinoma of left breast (HC) Aromatase inhibitor use COLONOSCOPY 08/18/2018 11:26 AM BULK PLANT OPERATOR LIPID PANEL W REFLEX MEASURED LDL Routine [...] Patients: Results are automatically released to your Frequent Browser (Fliplingo) account once available, in compliance with federal regulations. This means that you may see your results before your provider has had a chance to review them. Please allow 2-3 business days for your provider to comment on the results. XR DXA Bone Mineral Density (BMD) EXAM LOCATION: [address] [address] PATIENT NAME: Alice Englishmaria luz DATE OF [...] two scanners are made by the same order analyst. PROCEDURE: Dual-energy x-ray absorptiometry performed with routine [...] Final Result * COLONOSCOPY (08/18/2018 11:26 AM BULK PLANT OPERATOR) 08/18/2018 11:2 6 AM BULK PLANT OPERATOR Narrative Transcriptions Cecil Garcia MD - 08/18/2018 [...] - 199 mg/dL 11/25/2016 11:35 AM [facility] TRIGLYCERIDES 72 <150 mg/dL 11/25/2016 11:35 AM T [facility] HDL CHOLESTEROL 80 >40 mg/dL 7 11:35 AM T [facility] NON-HDL CHOLESTEROL 231(H) <145 mg/dl 11/25/2016 11:35 AM T [facility] CHOL/HDL RATIO 3.89 <4.50 11/25/2016 11:35 AM T [facility] LDL CHOLESTEROL 217(H) <=130 mg/dL 11/25/2016 11:35 AM [facility] PATIENT STATUS NOT GIVEN 11/25/2016 11:35 AM [facility] Blood BLOOD SPECIMEN / Unknown Venipuncture / Unknown 11/25/2016 9:48 AM CDT 11/25/2016 9:48 AM CDT Kevin Arroyo MD CHEMISTRY Final Re sult [address] [address] from Last 3 Months or Most Recently Relevant to Health Maintenance Insurance MEDICARE PART A HB ONLY [employer] MEDICARE ADVANTAGE MR [facility] MR BC [employer] COMP Advance Directives * Full Code (Latest Code Status on File) Date Activated Date Inactivated Comments 10/27/2017 12:22 PM 10/27/2017 3:32 PM * Full Code Date Activated Date Inactivated Comments 10/07/2017 5:41 PM 10/09/2017 11:47 AM * Full Code Date Activated Date Inactivated Comments 08/06/2006 6:41 AM 08/06/2006 11:56 AM Care Teams Gambling Supervisor Relationship Specialty Start Date End Date Kevin Arroyo MD [address] [place] [address] PCP - General 08/03/06 Alem Talbot MD [address] [place] [id number] Oncology Hematology and Oncology 01/16/20 Berta Fernandez, RONALD [address] [place] [id number] Oncology Nurse Practitioner - Family 01/16/20
[2024-09-19 17:43] LABS: Albumin* 4.4 g/dL (3.3-5.0); Chloride* 102 mmol/L (96-114); Potassium* 3.8 mmol/L (3.6-5.1); Sodium* 140 mmol/L (135-149)
[2024-09-19 17:46] LABS: Alanine Aminotransferase* 29 U/L (4-35); Alkaline Phosphatase* 65 U/L (40-150); Anion Gap 6 mEq/L (7-15); Aspartate Amino Transferase* 32 U/L (12-35); Bilirubin Total* 0.9 mg/dL (0.1-1.5); Blood Urea Nitrogen* 14 mg/dL (7-30); Calcium* 9.3 mg/dL (8.4-10.6); Carbon Dioxide* 32 mmol/L (20-32); Creatinine* 0.6 mg/dL (0.5-1.5); Est. Creatinine Clearance* 53.37; Estimated Glomerular Filt Rate 94 ml/min; Glucose* 87 mg/dL (60-115); Magnesium* 2.1 mg/dL (1.5-2.6)
[2024-09-19 18:41] LABS: Appearance Urine Clear (Clear); Bilirubin Urine Negative (Negative); Blood Urine Negative (Negative); Color Urine Yellow (Yellow); Glucose Urine Negative (Negative); Ketones Urine Negative (Negative); Leukocyte Esterase Urine Negative (Negative); Nitrite Urine Negative (Negative); Protein Urine Negative (Negative); Urobilinogen Urine 0.2 (0.2-1.0)
[2024-09-19 18:46] LABS: RBC Urine 0-2 (0-2); Squamous Epithelial Cell Urine Few (None-Few); WBC Urine 0-2 (0-5)
== END 2024-09-19 19:08 | disposition home or self-care (01) ==
PROVIDERS: Emergency Provider Emergency Medicine; PCP Family Medicine
DX: R42 Dizziness and giddiness (principal); I10 Essential (primary) hypertension
CPT/HCPCS: 36415; 80053; 81001; 83735; 84443; 84484; 85025; 93005; 94761; 99284; J7030

== ENCOUNTER 2025-01-09 11:10 | Outpatient (CLI) | payer MEDICARE, SELFPAY | END 2025-01-09 11:11 | disposition home or self-care (01) | LOC: NFLDREF 01-11 00:43 | PROVIDERS: PCP Family Medicine; Referring Provider Family Medicine; Visit Provider Internal Medicine | DX: E78.2 Mixed hyperlipidemia (principal) | CPT/HCPCS: 80061 ==